=== PATIENT | male | born 1970 | race Caucasian/White ===

== ENCOUNTER 2018-12-27 06:15 | Day surgery (SDC) | payer BC, SELFPAY ==
[2018-12-27 06:20] VITALS: BP 133/80; PULSE 75; RESP 18; TEMP 36.5; O2SAT 95
[2018-12-27] MEDS: Lactated Ringers 1,000 ML 80 ML IV (06:47)
--- NOTE | 2018-12-27 07:49 | BOWEL_PTH ---
PATIENT: Mathieu Lemons LOC: [facility] U#:[id number] AGE/SX: 48/M ROOM: RE12/27/[address]: Allyssa Martinez : 1970 BED: DIS: 12/27/2018 SPEC #: [id number] RECD: 12/27/18 12:39 STATUS: HEATHER REQ #: [id number] KYLAH: 12/27/18 07:[address]: Allyssa Martinez DEPT: Surgical Specimen RECD BY: Annalisa Parikh ENTERED: 12/27/18 12:39 SP TYPE: Bowel OTHR DR: Salazar Reid DO Tissues: 1 - BIOPSY BOWEL Procedures: GROSS AND MICRO LEVEL 4 Comments: [id number]
--- NOTE | 2018-12-27 08:07 | COLE_ITS ---
Date of service: 12/27/18 Time of Service: 08:03 Colonoscopy Report Date of procedure: 12/27/18 Pre-op diagnosis general: crc screen Post-op diagnosis procedure note: other Procedure: polyp 40cm Anesthesia proc note operative: GETA Estimated blood loss (mL): 2 Pathology: other Complications: None Disposition: same day Prep: Miralax Retraction Time: 10 mins Procedure Description: After informed consent was obtained the patient was taken to the procedure room and placed in a left decubitous position. Monitors were applied and a time out was done. The patients name, date of , procedure, al lergies to medications and metal in their body was reviewed. The patient was then sedated. Once sedated and comfortable a rectal exam was done. External exam was normal. Internal exam revealed a normal sphincter tone and no palpable masses. The prostate not palbable The scope was then introduced and retrofelexed. no internal hemorrhoids were identified. The scope was then advanced to the cecum without difficulty. The TI and appendiceal orifice were identified. The prep was good. The scope was then slowly retracted over 10 minutes back into the rectum. Polyps were removed at 40cm in descending colon. Polyp was removed using a cold biting forcep; all specimen was retrieved adn no bleeding noted. There were no AVM's, diverticula and the muscosal and vasculature appeared nl The scope was removed and the patient was woken up and taken back to Same day surgery in stable condition. The patient tolerated the procedure well and there were no immediate complications. Follow up: The patient should follow up in 5-10, path pd, years unless they develop changes in bowel habits or other new gastrointestinal complaints.
--- NOTE | 2018-12-27 08:10 | W.PM.DSUDISC ---
Discharge Plan Disposition Patient Disposition: HOME Condition: Good Discharge Details Attending Provider: Allyssa Martinez Primary Care Provider: Salazar Reid Home Meds and New Rx's Prescriptions: Continued ranitidine HCl 150 mg capsule 150 mg PO BID PRN (Reason: gastric reflux) Qty: 60 RF: 3 indomethacin 50 mg capsule 50 mg PO TID PRN (Reason: gout) Qty: 30 RF: 1 allopurinol 100 MG tablet 200 mg PO DAILY Qty: 180 RF: 3 Discontinued polyethylene glycol 3350 17 gram/dose powder 238 g PO ONCE Qty: 238 RF: 0 bisacodyl [Dulcolax (bisacodyl)] 5 mg tablet,delayed release (DR/EC) 5 mg PO ONCE Qty: 4 RF: 0 Discharge Instructions Additional Instructions: Findings: sm polyp otherwise michaela -no ASA/NSAID's x 10 days Follow up: path pd. will send letter w/ results and when to repeat scope Please call if you develop: fevers >101.5 Nausea or Vomiting Abdominal pain that is not transient DAY SURGERY UNIT POST COLONOSCOPY INSTRUCTIONS 1. Because there will be medication in your system for the next 24 hours, you may feel a little sleepy. Your coordination will be affected. Therefore: a. Do not drive or operate dangerous equipment for 24 hours. b. Do not drink alcohol beverages for 24 hours (not even beer). c. Plan to go home and rest for the day. 2. Generally there are no restrictions on your activity after a day or so has gone by, but you may feel a bit fatigued for a few days. 3 After you arrive home you may have a light meal and return to a normal diet as you can tolerate it without feeling sick to your stomach. 4. After surgery, you may feel pain or discomfort. This should be only transient, but if it persists please contact your doctor. 5. If there are any questions regarding the findings of your procedure, please feel free to contact your doctor. 6. If you are unable to contact your doctor with a problem, contact the hospital at [phone]. 7. Continue all your regular medications unless directed otherwise. I understand the above instructions and have no questions. Signature of Patient or Responsible Adult Escort Date/Time Name of Responsible Adult Escort Signature of Nurse Date/Time Activity:: nl liting or strenuous acituvty x24 hrs Diet:: sm light meals today DS: Diagnosis Discharge Diagnosis (1) Colon polyp: Status: Acute
[2018-12-27 08:35] VITALS: BP 115/75; PULSE 72; RESP 18; TEMP 36; O2SAT 95
== END 2018-12-27 09:05 | disposition home or self-care (01) ==
PROVIDERS: PCP Emergency Medicine; Visit Provider Surgery
PROC: 0DJD8ZZ Inspection of Lower Intestinal Tract, Via Natural or Artificial Opening Endoscopic (ICD-10-PCS; CPT 45378; principal; 2018-12-27 07:30)
DX: Z12.11 Encounter for screening for malignant neoplasm of colon (principal); D12.4 Benign neoplasm of descending colon; K21.9 Gastro-esophageal reflux disease without esophagitis
CPT/HCPCS: 45380; 88305

== ENCOUNTER 2019-01-21 07:58 | Outpatient (CLI) | payer BC, SELFPAY ==
[2019-01-21 13:29] LABS: Cholesterol 224 mg/dL (50-200); HDL Cholesterol 41 mg/dL (40-60); LDL CHOLESTEROL 150 mg/dL (<100); Triglyceride 121 mg/dL (30-150)
[2019-01-21 13:41] LABS: Uric Acid 7.2 mg/dL (3.5-7.2)
== END 2019-01-21 08:18 ==
PROVIDERS: PCP Emergency Medicine; Visit Provider Emergency Medicine
DX: M10.9 Gout, unspecified (principal); Z00.00 Encounter for general adult medical examination without abnormal findings; Z13.220 Encounter for screening for lipoid disorders
CPT/HCPCS: 36415; 80061; 83721; 84550

== ENCOUNTER 2020-02-10 01:48 | Outpatient (CLI) | payer BC, SELFPAY ==
[2020-02-10 16:01] LABS: Anion Gap 10.3 mmol/L (3-11); BUN 11 mg/dL (7-18); CO2 25.7 mmol/L (21.0-32.0); CREATININE 1.17 mg/dL (0.70-1.30); Calcium 9.3 mg/dL (8.5-10.1); Chloride 102 mmol/L (98-107); Glucose 100 mg/dL (74-106); Potassium 4.1 mmol/L (3.5-5.1); Sodium 138 mmol/L (136-145); Uric Acid 5.9 mg/dL (3.5-7.2)
[2020-02-10 16:40] LABS: Calculated LDL 144 mg/dL (<100); Cholesterol 217 mg/dL (<200); HDL Cholesterol 35 mg/dL (40-60); Triglyceride 190 mg/dL (<150)
[2020-02-11 09:45] LABS: PSA, Screening 0.6 ng/mL (0.0-3.5)
== END 2020-02-10 02:08 ==
PROVIDERS: PCP Emergency Medicine; Visit Provider Emergency Medicine
DX: E78.5 Hyperlipidemia, unspecified (principal); I10 Essential (primary) hypertension; M10.9 Gout, unspecified; Z12.5 Encounter for screening for malignant neoplasm of prostate
CPT/HCPCS: 36415; 80048; 80061; 84153; 84550

== ENCOUNTER 2020-09-22 16:28 | Outpatient (REF) | payer BC, SELFPAY ==
[2020-09-22 22:12] LABS: Calculated LDL 83 mg/dL (<100); Cholesterol 157 mg/dL (<200); HDL Cholesterol 37 mg/dL (40-60); Triglyceride 187 mg/dL (<150)
[2020-09-22 22:21] LABS: Uric Acid 4.7 mg/dL (3.5-7.2)
[2020-09-22 22:24] LABS: Hemoglobin A1C 6.2 % (<5.7)
== END 2020-09-22 16:48 ==
LOC: LBN 16:28
PROVIDERS: PCP Emergency Medicine; Visit Provider Emergency Medicine
DX: E78.5 Hyperlipidemia, unspecified (principal); M10.9 Gout, unspecified; E66.9 Obesity, unspecified
CPT/HCPCS: 80061; 83036; 84550

== ENCOUNTER 2021-10-14 03:55 | Outpatient (CLI) | payer BC, SELFPAY ==
[2021-10-14 10:02] LABS: ALT 60 U/L (16-63); Anion Gap 8.5 mmol/L (3-11); BUN 14 mg/dL (7-18); CO2 27.5 mmol/L (21.0-32.0); CREATININE 1.1 mg/dL (0.70-1.30); Calcium 9.3 mg/dL (8.5-10.1); Chloride 102 mmol/L (98-107); Glucose 116 mg/dL (74-106); Potassium 4.2 mmol/L (3.5-5.1); Sodium 138 mmol/L (136-145); Uric Acid 4.6 mg/dL (3.5-7.2)
[2021-10-14 10:07] LABS: Hemoglobin A1C 6.1 % (<5.7)
[2021-10-14 12:03] LABS: Calculated LDL 103 mg/dL (<100); Cholesterol 167 mg/dL (<200); HDL Cholesterol 45 mg/dL (40-60); Triglyceride 99 mg/dL (<150)
[2021-10-14 18:02] LABS: PSA, Screening 0.9 ng/mL (0.0-3.5)
[2021-10-17 10:59] LABS: Hepatitis C Ab w Rflx HCV PCR Negative (Negative)
[2021-10-17 12:19] LABS: HIV-1/2 Ag & Ab Screen Negative (Negative)
== END 2021-10-14 03:56 | disposition home or self-care (01) ==
LOC: LBO 03:55
PROVIDERS: PCP Family Medicine; Visit Provider Family Medicine
DX: E78.5 Hyperlipidemia, unspecified (principal); M10.9 Gout, unspecified; R73.9 Hyperglycemia, unspecified; Z11.59 Encounter for screening for other viral diseases; Z12.5 Encounter for screening for malignant neoplasm of prostate; Z11.4 Encounter for screening for human immunodeficiency virus [HIV]
CPT/HCPCS: 36415; 80048; 80061; 84153; 86803; 87389; 83036; 84460; 84550

== ENCOUNTER 2022-04-07 14:39 | Outpatient (REF) | payer BC, SELFPAY | END 2022-04-07 14:40 | disposition home or self-care (01) | LOC: LBN 14:39 | PROVIDERS: Visit Provider Physician Assistant | DX: J02.9 Acute pharyngitis, unspecified (principal) | CPT/HCPCS: 87070 ==

== ENCOUNTER 2022-11-08 02:35 | Outpatient (CLI) | payer BC, SELFPAY ==
[2022-11-08 08:12] LABS: Hemoglobin A1C 6.3 % (<5.7)
[2022-11-08 09:02] LABS: ALT 50 U/L (16-63); BUN 13 mg/dL (7-18); CREATININE 1.1 mg/dL (0.70-1.30); Calcium 9.2 mg/dL (8.5-10.1); Calculated LDL 87 mg/dL (<100); Chloride 104 mmol/L (98-107); Cholesterol 143 mg/dL (<200); Estimated GFR 79.77 (mL/min/1.73m2); Glucose 134 mg/dL (74-106); HDL Cholesterol 42 mg/dL (40-60); Potassium 3.9 mmol/L (3.5-5.1); Sodium 141 mmol/L (136-145); Triglyceride 74 mg/dL (<150)
[2022-11-08 09:21] LABS: Uric Acid 4.9 mg/dL (3.5-7.2)
== END 2022-11-08 02:36 | disposition home or self-care (01) ==
PROVIDERS: PCP Nurse Practitioner Family; Visit Provider Nurse Practitioner Family
DX: E78.5 Hyperlipidemia, unspecified (principal); I10 Essential (primary) hypertension; M10.9 Gout, unspecified; R73.09 Other abnormal glucose
CPT/HCPCS: 36415; 80048; 80061; 83036; 84460; 84550

== ENCOUNTER 2022-12-19 16:33 | Outpatient (REF) | payer BC, SELFPAY ==
[2022-12-20 12:05] LABS: HSV 1 DNA Result Negative (Negative); HSV 2 DNA Result Negative (Negative)
== END 2022-12-19 16:34 | disposition home or self-care (01) ==
LOC: LBN 16:33
PROVIDERS: PCP Nurse Practitioner Family; Visit Provider Nurse Practitioner Family
DX: R21 Rash and other nonspecific skin eruption (principal); N48.89 Other specified disorders of penis
CPT/HCPCS: 87529; 87070; 87205

== ENCOUNTER 2023-09-02 00:43 | Observation (INO) | payer BC, SELFPAY ==
[2023-09-02] VITALS (22 sets, daily range): BP systolic 102–170; BP diastolic 62–109; PULSE 74–111; RESP 16–20; TEMP 36.6–39.4; O2SAT 90–98
--- NOTE | 2023-09-02 00:45 | RT.EKG_ITS ---
APPROVED REPORT Exam: Resting ECG Reason for Exam: chest pain Patient Location: E HR:82 bpm ECG Measurements Heart Rate 82 AXIS [place] 172 P 9 QRSd 91 QRS 36 QT 566 T 9 QTc 663 Conclusion Sinus rhythm...normal P axis, V-rate 60- 99 limited interp 2/t artifact no ST segment or T wave abnormalities to suggest occluisve [place]
--- NOTE | 2023-09-02 01:07 | DI.CT_ITS ---
Exam(s) CT THORAX ABDOMEN CTA EXAM: CT THORAX ABDOMEN CTA CLINICAL HISTORY: eval aortic dissection. TECHNIQUE: Imaging Protocol: Axial CT angiography was performed with multi-slice acquisition and m ulti-planar and/or 3D reconstructions. CONTRAST MATERIAL: Intravenous: Omnipaque 350 contrast volume:84 mL Oral: No COMPARISON: There are no priors for comparison. FINDINGS: There is patient motion artifact. CHEST: Tracheobronchial tree: Patent where visualized. Pulmonary parenchyma: No consolidation or dominant measurable mass. No architectural distortion. Pulmonary Arteries: The pulmonary arteries were not adequately opacified as the bolus was timed for o ptimal aortic enhancement. Mediastinum and Kavitha: No dominant adenopathy or fluid collection. The esophagus is unremarkable. Visualized thyroid: Unremarkable. Pleura: No effusion or pneumothorax. Heart: The heart is not dilated. Coronary artery calcification and/or stents are present. No pericar dial effusion. Aorta: Thoracic aorta non-dilated. No evidence of dissection. Soft Tissues: Unremarkable. Bones: Within normal limits for the patient's age. ABDOMEN AND PELVIS: Abdomen: Celiac axis/mesenteric arteries: No evidence of occlusion or significant stenosis. Renal Arteries: No evidence of occlusion or significant stenosis. There is a single renal artery per fusing each kidney. Aorta: No evidence of occlusion or significant stenosis. No aneurysm or dissection. Iliac Arteries: No evidence of occlusion or significant stenosis. ABDOMEN: Liver: Normal density. No measurable mass. Gallbladder and Biliary Tract: Gallstones are present. No significant biliary ductal dilatation. Pancreas: Normal density, no abnormal calcifications or inflammatory process. Spleen: Normal. Adrenals: No masses seen. Kidneys: Normal size, contour and axis. No radiodense stones or obstructive uropathy. No masses seen. Bowel: No obstruction or bowel wall thickening. Appendix is unremarkable. Peritoneal Cavity: No ascites, collection or mesenteric inflammatory response. No free air. Lymph Nodes: Within normal limits. Bones: Within normal limits for the patient's age. Soft Tissues: Unremarkable. IMPRESSION: 1. No evidence of thoracic or abdominal aortic dissection. 2. Cholelithiasis. No biliary ductal dilatation. There is concern for gallbladder pathology, ultras ound may be obtained. 3. No acute pulmonary process. RADIATION DOSE DELIVERED: 989.03mGy.cm Total DLP DATA REPOSITORY: All CT scans at this facility are submitted to the National Radiology Data Registry (NRDR) Dose Index Registry (DIR) with the [employer] (ACR). RADIATION OPTIMIZATION: All CT scans at this facility use at least one of these dose optimization te chniques: automated exposure control; mA and/or kV adjustment per patient size (includes targeted exa ms where dose is matched to clinical indication); or iterative reconstruction.
[2023-09-02] MEDS: Aspirin 81 MG CHEW 324 MG CH (01:13)
--- NOTE | 2023-09-02 01:15 | RT.EKG_ITS ---
APPROVED REPORT Exam: Resting ECG Reason for Exam: chest pain Patient Location: E HR:72 bpm ECG Measurements Heart Rate 72 AXIS [place] 148 P 32 QRSd 89 QRS 38 QT 377 T 6 QTc 414 Conclusion Sinus rhythm...normal P axis, V-rate 60- [address] segment or T wave abnormalities to suggest occluisve [place]
[2023-09-02 01:16] LABS: Abs Immature Grans 0.03 10^3/uL (0.0-0.06); Absolute Basophil Count 0.07 10^3/uL (0.0-0.2); Absolute Eosinophil Count 0.33 10^3/uL (0.0-0.7); Absolute Lymphocyte Count 3.08 10^3/uL (1.2-3.4); Absolute Monocyte Count 1.47 10^3/uL (0.1-0.8); Absolute Neutrophil Count 7.28 10^3/uL (1.2-6.7); Basophils % 0.6; Eosinophils % 2.7; HCT 42.2 % (40.0-50.0); HGB 14.5 g/dL (13.5-17.5); Immature Grans % 0.2; Lymphocytes % 25.1; MCH 29.7 pg (27.0-33.0); MCHC 34.4 % (32.0-36.0); MCV 87 fL (80-95); MPV 8.8 fL (8.0-11.0); Neutrophils % 59.4; Platelet Count 301 10^3/uL (130-400); RBC 4.88 10^6/uL (4.36-5.78); RDW 13.2 % (11.8-14.1); RDW-SD 41.2 fL; WBC 12.26 10^3/uL (4.4-10.8)
[2023-09-02 01:39] LABS: ALT 40 U/L (16-63); AST 18 U/L (15-37); Albumin 3.9 g/dL (3.4-5.0); Alkaline Phosphatase 93 U/L (46-116); Anion Gap 8.9 mmol/L (3-11); BUN 17 mg/dL (7-18); Bilirubin, Total 0.6 mg/dL (0.2-1.0); CO2 29.1 mmol/L (21.0-32.0); CREATININE 1.2 mg/dL (0.70-1.30); Calcium 9.2 mg/dL (8.5-10.1); Chloride 99 mmol/L (98-107); Estimated GFR 71.42 (mL/min/1.73m2); Glucose 166 mg/dL (74-106); Magnesium 1.8 mg/dL (1.8-2.4); NT-proBNP 18 pg/mL (<300); Potassium 3.3 mmol/L (3.5-5.1); Sodium 137 mmol/L (136-145); Total Protein 7.4 g/dL (6.4-8.2); Troponin I < 50 ng/L (<or=60)
--- NOTE | 2023-09-02 01:55 | W.ED.GENAD ---
HPI General Stated Complaint: Chest Pain Mode of arrival: ambulatory. HARI: 3 Date/Time Provider Initiated Documentation: 09/02/23 00:58. Limitations to Documentation: no limitations. Information obtained by: patient. HPI Narrative: 53yo M with no prior cardiac hx presenting with 2 weeks of intermittent substernal/lower chest pain radiating into his back. Symptoms started two weeks ago, often noted overnight, and seemed to improve within 10-15 minutes after onset after he had a bowel movement. Yesterday lasted around 2 hours. Today has been present for 2 hours and is starting to wane but still present, 4/10 in severity. No associated shortness of breath, pleuritic pain, or presyncope. No nausea, vomiting, or diarrhea. No LE edema. No orthopnea or dyspnea. No personal cardiac hx, does think his mother at age 62 from a heart attack though is not certain. He is otherwise in his usual state of health with no fevers, chills, rash, cough, abdominal pain, or other concerns. Related Data Home Medications Medication Instructions Recorded Confirmed psyllium husk 3.4 gram/5.4 gram 1 tbsp PO DAILY 09/22/20 09/02/23 oral powder (Metamucil) allopurinol 300 mg tablet See Rx Instructions .Route 02/23/23 09/02/23 .COMPLEX #90 tabs famotidine 20 mg tablet See Rx Instructions .Route 02/23/23 09/02/23 .COMPLEX #90 tabs rosuvastatin 10 mg tablet (Crestor) 10 mg PO DAILY #90 tabs 02/23/23 09/02/23 Previous Rx's Medication Instructions Recorded allopurinol 300 mg tablet See Rx Instructions .Route 02/23/23 .COMPLEX #90 tabs famotidine 20 mg tablet See Rx Instructions .Route 02/23/23 .COMPLEX #90 tabs rosuvastatin 10 mg tablet (Crestor) 10 mg PO DAILY #90 tabs 02/23/23 Allergies Allergy/AdvReac Type Severity Reaction Status Date / Time No Known Allergies Allergy Verified 09/02/23 00:52 Review of Systems Narrative: see HPI PFSH All Active Problems (Updated 12/19/22 @ 11:11 by Alexx Owen NP) Rash of penis (Acute) Rhinosinusitis (Acute) Hypertension (Chronic) Prediabetes (Acute) Hyperlipidemia (Acute) Colon polyp (Acute) 12/27/[address] Allyssa Martinez, [facility] - tubular adenoma, repeat in five years. Acquired kyphosis (Chronic) thoracic kyphosis Gout (Chronic 11/24/15) Obesity (Chronic) Medical History GERD (gastroesophageal reflux disease) Not taking any medication at this time Hyperglycemia 2020, [id number]%. [id number]-[id number]-1.1%, FBS-116 Family History Mother , [place] at age 62. Heart disease Myocardial infarction Father , OLD AGE at age 80. No problems noted. Sister No problems noted. Sister No problems noted. Brother No problems noted. Brother Hyperlipidemia Testicular cancer Maternal Grandfather , AGE 55 Heart disease Paternal Grandfather , AGE 83 Alcohol abuse Liver cancer Maternal Grandmother , AGE 94 No problems noted. Paternal Grandmother , AGE 79 Diabetes Son No problems noted. Son Depression Social History Smoking/Tobacco Use Status: Never Second Hand Exposure: Yes Smoking risk assessment performed?: Yes Alcohol Intake: current Alcohol Intake frequency: a few times a month Alcohol type: beer and hard liquor Drug use: Never Substance use type: does not use Counseling given: No Caregiver/Support person: No Household members: spouse, children and other Details: son's girlfriend Housing: house Communication Needs: None Do you need help understanding health information?: Never Pets and animals: No Sexually active: Yes Do you think of yourself as: straight/heterosexual Current gender identity: male What is your relationship status?: How often do you talk on the phone with friends or family?: never How often do you get together with friends or relatives?: once per week How often do you attend taoism or christianity services?: 1-3 times per year Do you belong to any clubs or organized social groups?: yes Panel score (0-1 are the most socially isolated patients): 2 What type of physical activity do you participate in: bicycling Duration: 15-30 minutes/day Frequency: 1-2 times per week Nancy/Zoroastrian: No preference Special nancy needs: No Seatbelt use: always Helmet use: Yes Helmet use: always Drive intox or ride w/intox construction driver: No Do you feel safe at home: Yes Do you feel safe in your relationship?: Yes Exam Narrative Exam Narrative: General: Alert, well appearing, well nourished, in no acute distress. Head: Normocephalic, atraumatic Neck: Trachea midline, ?Neck supple. ENT: ?MMM.? Cardiac: ?RRR, no murmurs appreciated Resp: No respiratory distress. CTAB. Abd: ?Soft, non-distended, nontender : ?No suprapubic tenderness. Extremities: ?No deformities.? No peripheral edema. Neurologic: GCS 15. ? Moves all extremities freely against gravity Course Vital Signs Vital signs: Vital Signs Temperature 37.1 C 09/02/23 00:46 Pulse 78 09/02/23 00:46 Respiratory Rate 18 09/02/23 00:46 Blood Pressure 166/109 H 09/02/23 00:46 Pulse Oximetry 97 09/02/23 00:46 Temperature 37.1 C 09/02/23 00:46 Temperature Source Skin 09/02/23 00:46 Pulse 78 09/02/23 00:46 Respiratory Rate 18 09/02/23 00:50 Respiratory Effort Normal 09/02/23 00:50 Respiratory Depth Normal 09/02/23 00:50 Respiratory Pattern Normal 09/02/23 00:50 Blood Pressure 166/109 H 09/02/23 00:46 Blood Pressure Position Sitting 09/02/23 00:46 Pulse Oximetry 97 09/02/23 00:46 Oxygen Delivery Method Room Air 09/02/23 00:46 Oxygen Flow Rate 0 09/02/23 00:46 Lab/Test Results Lab/Test Results: Laboratory Tests Range/Units 09/02/23 00:57 WBC (4.4-10.8) 10^3/uL 12.26 H RBC (4.36-5.78) 10^6/uL 4.88 Hgb (13.5-17.5) g/dL 14.5 Hct (40.0-50.0) % 42.2 MCV (80-95) fL 87 MCH (27.0-33.0) pg 29.7 MCHC (32.0-36.0) % 34.4 RDW (11.8-14.1) % 13.2 Plt Count (130-400) 10^3/uL 301 MPV (8.0-11.0) fL 8.8 Immature Gran % 0.2 Neutrophils % 59.4 Lymphocytes % 25.1 Monocytes % 12.0 Eosinophils % 2.7 Basophils % 0.6 Nucleated RBC % (0.0-0.3) % 0.0 Absolute Neutrophils (1.2-6.7) 10^3/uL 7.28 H Absolute Lymphocytes (1.2-3.4) 10^3/uL 3.08 Absolute Monocytes (0.1-0.8) 10^3/uL 1.47 H Absolute Eosinophils (0.0-0.7) 10^3/uL 0.33 Absolute Basophils (0.0-0.2) 10^3/uL 0.07 Sodium (136-145) mmol/L 137 Potassium (3.5-5.1) mmol/L 3.3 L Chloride (98-107) mmol/L 99 Carbon Dioxide (21.0-32.0) mmol/L 29.1 Anion Gap (3-11) mmol/L 8.9 BUN (7-18) mg/dL 17 Creatinine (0.70-1.30) mg/dL 1.2 Est GFR (CKD-EPI 2020) (mL/min/1.73m2) 71.42 Glucose (74-106) mg/dL 166 H Calcium (8.5-10.1) mg/dL 9.2 Magnesium (1.8-2.4) mg/dL 1.8 Total Bilirubin (0.2-1.0) mg/dL 0.6 AST (15-37) U/L 18 ALT (16-63) U/L 40 Alkaline Phosphatase (46-116) U/L 93 Troponin I (<or=60) ng/L < 50 NT-Pro-B Natriuret Pep (<300) pg/mL 18 Total Protein (6.4-8.2) g/dL 7.4 Albumin (3.4-5.0) g/dL 3.9 Medical Decision Making 53yo M with no prior cardiac hx presenting with 2 weeks of intermittent substernal/lower chest pain radiating into his back. Today has been present for 2 hours and is starting to wane but still present, 4/10 in severity. No associated symptoms. Hypertensive on arrival SBP 160's, vital signs otherwise reassuring. No shortness of breath, hypoxia, tachycardia, or pleuritic pain to suggest pulmonary embolism; would not workup further with dimer or CT. Physical exam reassuring with no abdominal tenderness, no RUQ tenderness. Lower suspicion for gallbladder pathology or pancreatitis. Given 325 of aspirin. EKG NSR, no ST segment or T wave abnormalities to suggest occlusive [place]. Labs reviewed as below, CBC with mild leukocytosis to 12, CMP with mild hypokalemia to 3.3 (oral replacement ordered), otherwise no significant abnormalities. Mg normal. Initial troponin and BNP normal. Lipase normal. CT for dissection independently reviewed; no clear dissection flap on my view, agree with radiology read below. Of note, patient does have gallstones seen on CT. On reassessment patient reports feeling nauseated, pain persists. Differential remains broad including ACS, gastritis, reflux, biliary colic/cholecystitis. Attempted symptom control with zofran, tylenol, viscous lidocaine, mylanta, bentyl. Nausea improved, pain minimally improved with regimen. Given 4mg IV morphine with good effect. Repeat CMP reassuring with no significant increase in bilirubin or LFTs. Early cholecystitis possible, would prefer to evaluate with ultrasound however unavailable over the weekend. Repeat troponin negative. HEART score 3 (A1 RF2); low risk. Would not further pursue ACS workup at this time. On reassessment pain has returned. On repeat exam does now have RUQ tenderness on exam, Beckman's remains negative. Overall presentation concerning for early cholecystitis particularly given persistence of symptoms, evolving RUQ pain, leukocystosis. Warrants US to further evaluate; unable to get US to come in here. Will attempt to transfer patient to facility with [place] availability[place] [facility] [facility] no capacity. [facility] no capacity. [facility] unable to get US. [place] unable to get US. [facility] unable to get US. [facility] unable to get US. Signed out to oncoming physician, will need to continue to find appropriate accepting facility. Imaging Data Radiologic Study: Imaging: CT Scan Radiologist's impression: IMPRESSION: 1. No evidence of aortic dissection. 2. Cholelithiasis and possible gallbladder wall thickening. Correlate with ultrasound if indicated. Lab Data Lab results reviewed: Yes I reviewed the patient's lab results. Labs: Laboratory Tests Range/Units 09/02/23 09/02/23 00:57 04:07 WBC (4.4-10.8) 10^3/uL 12.26 H RBC (4.36-5.78) 10^6/uL 4.88 Hgb (13.5-17.5) g/dL 14.5 Hct (40.0-50.0) % 42.2 MCV (80-95) fL 87 MCH (27.0-33.0) pg 29.7 MCHC (32.0-36.0) % 34.4 RDW (11.8-14.1) % 13.2 Plt Count (130-400) 10^3/uL 301 MPV (8.0-11.0) fL 8.8 Immature Gran % 0.2 Neutrophils % 59.4 Lymphocytes % 25.1 Monocytes % 12.0 Eosinophils % 2.7 Basophils % 0.6 Nucleated RBC % (0.0-0.3) % 0.0 Absolute Neutrophils (1.2-6.7) 10^3/uL 7.28 H Absolute Lymphocytes (1.2-3.4) 10^3/uL 3.08 Absolute Monocytes (0.1-0.8) 10^3/uL 1.47 H Absolute Eosinophils (0.0-0.7) 10^3/uL 0.33 Absolute Basophils (0.0-0.2) 10^3/uL 0.07 Sodium (136-145) mmol/L 137 134 L Potassium (3.5-5.1) mmol/L 3.3 L 3.7 Chloride (98-107) mmol/L 99 99 Carbon Dioxide (21.0-32.0) mmol/L 29.1 27.4 Anion Gap (3-11) mmol/L 8.9 7.6 BUN (7-18) mg/dL 17 16 Creatinine (0.70-1.30) mg/dL 1.2 1.2 Est GFR (CKD-EPI 2020) (mL/min/1.73m2) 71.42 71.42 Glucose (74-106) mg/dL 166 H 193 H Calcium (8.5-10.1) mg/dL 9.2 9.1 Magnesium (1.8-2.4) mg/dL 1.8 Total Bilirubin (0.2-1.0) mg/dL 0.6 0.5 AST (15-37) U/L 18 18 ALT (16-63) U/L 40 39 Alkaline Phosphatase (46-116) U/L 93 89 Troponin I (<or=60) ng/L < 50 < 50 NT-Pro-B Natriuret Pep (<300) pg/mL 18 Total Protein (6.4-8.2) g/dL 7.4 7.3 Albumin (3.4-5.0) g/dL 3.9 3.8 Lipase (16-77) U/L 31 Quality:[facility] Health Related Social Needs: No Data to Display Sign Out Sign Out Data: Sign Out Comment: 53yo M presenting with lower chest pain radiating to back. RUQ tenderness on exam. CT/EKG/labs reassuring, clinically presents as early cholecystitis. Needs US. Attempting to find accepting facility early this am without success. IV morphine for pain, zofran for nausea. Needs followup on accepting facility. Last updated by Amie Velazquez MD at 09/02/23 06:22 Discharge Plan Discharge Details Chief Complaint: Chest Pain Primary Care Provider: Alexx oJe ED Provider: Amie Velazquez Home Meds and New Rx's Prescriptions: No Action Metamucil 3.4 gram/5.4 gram powder 1 tbsp PO DAILY Rx Instructions: mix into at least 8 oz of water or juice before administering allopurinol 300 mg tablet See Rx Instructions .ROUTE .COMPLEX Qty: 90 2RF Dose Instruction: TAKE ONE TABLET BY MOUTH EVERY DAY Rx Instructions: TAKE ONE TABLET BY MOUTH EVERY DAY famotidine 20 mg tablet See Rx Instructions .ROUTE .COMPLEX Qty: 90 1RF Dose Instruction: TAKE ONE TABLET BY MOUTH EVERY DAY Rx Instructions: TAKE ONE TABLET BY MOUTH EVERY DAY rosuvastatin [Crestor] 10 mg tablet 10 mg PO DAILY Qty: 90 3RF
[2023-09-02] MEDS: Omnipaque 350 MG/ML 100 ML BTL IJ (02:03)
[2023-09-02] MEDS: Potassium Chloride 20 MEQ TABCR 40 MEQ PO (02:16)
--- NOTE | 2023-09-02 02:27 | DI.VRAD_ITS ---
PROCEDURE INFORMATION: Exam: CTA Chest With Contrast CTA Abdomen With Contrast Exam date and time: 09/02/2023 1:32 AM Age: 53 years old Clinical indication: Other: Eval aortic dissection TECHNIQUE: Imaging protocol: Computed tomographic angiography of the chest with contrast. Exam focused on the arteries. Computed tomographic angiography of the abdomen with contrast. Exam focused on the arteries. 3D rendering (Not supervised by radiologist): MIP and/or 3D reconstructed images were created by the technologist. Contrast material: 350; Contrast volume: 85 ml; Contrast route: INTRAVENOUS (IV); COMPARISON: No relevant prior studies available. FINDINGS: VASCULATURE: Pulmonary arteries: Minimal opacification of the pulmonary arteries. Aorta: Normal aorta without aneurysm or dissection. Celiac trunk and mesenteric arteries: No occlusion or significant stenosis. Renal arteries: No occlusion or significant stenosis. CHEST: Lungs: No airspace consolidation or ground-glass opacities. Pleural spaces: No pleural effusion or pneumothorax. Heart: Unremarkable. No cardiomegaly. No pericardial effusion. ABDOMEN AND PELVIS: Liver: No mass. Gallbladder and bile ducts: Cholelithiasis. Possible gallbladder wall thickening. Pancreas: Unremarkable. No mass. No ductal dilation. Spleen: Unremarkable. No splenomegaly. Adrenal glands: Unremarkable. No mass. Kidneys and ureters: Unremarkable. No solid mass. No hydronephrosis. Stomach and bowel: Unremarkable. No obstruction. No mucosal thickening. Appendix: Normal appendix. Intraperitoneal space: No free fluid or free air. Lymph nodes: Unremarkable. No enlarged lymph nodes. Bones/joints: No acute fracture. Soft tissues: Unremarkable. IMPRESSION: 1. No evidence of aortic dissection. 2. Cholelithiasis and possible gallbladder wall thickening. Correlate with ultrasound if indicated. Dictated and Authenticated by: Trever Fournier MD. Ordering:HUANG Holloway MD
[2023-09-02 02:33] LABS: Lipase 31 U/L (16-77)
[2023-09-02] MEDS: Acetaminophen 500 MG TAB 1000 MG PO ×3 (02:40→21:22)
[2023-09-02] MEDS: Calcium Carbonate *TUMS* 500 MG CHEW PO (02:41)
[2023-09-02] MEDS: Lidocaine 2% Viscous 15 ML CUP PO (02:41)
[2023-09-02] MEDS: Ondansetron 4 MG/2 ML VIAL IM (02:42)
[2023-09-02] MEDS: Sucralfate 1 GM TAB PO (02:42)
[2023-09-02] MEDS: Mylanta Suspension 30 ML CUP (02:42)
--- NOTE | 2023-09-02 02:42 | NUR.NOTE ---
Nursing Note:pt promptly vomitted after GI cocktail made aware
[2023-09-02] MEDS: Dicyclomine 20 MG TAB PO (03:33)
[2023-09-02 04:38] LABS: ALT 39 U/L (16-63); AST 18 U/L (15-37); Albumin 3.8 g/dL (3.4-5.0); Alkaline Phosphatase 89 U/L (46-116); Anion Gap 7.6 mmol/L (3-11); BUN 16 mg/dL (7-18); Bilirubin, Total 0.5 mg/dL (0.2-1.0); CO2 27.4 mmol/L (21.0-32.0); CREATININE 1.2 mg/dL (0.70-1.30); Calcium 9.1 mg/dL (8.5-10.1); Chloride 99 mmol/L (98-107); Estimated GFR 71.42 (mL/min/1.73m2); Glucose 193 mg/dL (74-106); Potassium 3.7 mmol/L (3.5-5.1); Sodium 134 mmol/L (136-145); Total Protein 7.3 g/dL (6.4-8.2)
[2023-09-02 04:54] LABS: Troponin I < 50 ng/L (<or=60)
--- NOTE | 2023-09-02 07:29 | ED.PROG_ITS ---
Date of service: 09/02/23 Time of Service: 07:29 Medical Decision Making 7:29 AM I have received signout. I have reviewed the patient's labs and radiographs. I have examined the patient. He is reporting chills but does not feel warm to the touch. His abdomen is soft, mild RUQ tenderness. His pain is about a 5 out of 10 in severity. He is also reporting nausea and stated he just vomited. I will write for Zofran, morphine and a repeat temp as well as IV fluids to keep him n.p.o. and I will consult Dr. Ann from general surgery. 7:48 AM I have spoken with Dr. Ann who has agreed to admit the patient. I will update the patient and his family. 8:[address] Ann is with the patient. The patient will be admitting the patient. the patient voiced agreement and understanding with plan. Lab Data Lab results reviewed: Yes I reviewed the patient's lab results. Quality:[facility] Health Related Social Needs: No Data to Display Sign Out Sign Out Data: Sign Out Comment: 53yo M presenting with lower chest pain radiating to back. RUQ tenderness on exam. CT/EKG/labs reassuring, clinically presents as early cholecystitis. Needs US. Attempting to find accepting facility early this am without success. IV morphine for pain, zofran for nausea. Needs followup on accepting facility. Last updated by Amie Velazquez MD at 09/02/23 06:22 Discharge Plan Disposition Patient Disposition: Admit to [facility] Discharge Details Clinical Impression: Gallstones, Biliary colic Admit Date/Time: 09/02/23 08:41 Admit Provider: Braydon Ann Attending Provider: Braydon Ann Primary Care Provider: Alexx Joe ED Provider: Winter Teresa Discharge Data Discharge Date/Time-TO BE ENTERED AT DEPARTURE: 09/02/23 10:02
[2023-09-02] MEDS: Normal Saline 1,000 ML 200 ML IV (07:40)
[2023-09-02] MEDS: Ondansetron 4 MG/2 ML VIAL IVP (07:44)
[2023-09-02] MEDS: Ketorolac 15 MG/ML VIAL IVP (07:48)
--- NOTE | 2023-09-02 08:10 | W.PM.HP.N ---
Date of service: 09/02/23 Time of Service: 08:10 Assessment and Plan Assessment and plan (1) Biliary colic: Status: Acute Assessment and plan: He certainly has some gallstones on the CAT scan, and may be some gallbladder distention. The gallbladder wall thickening is very mild. This certainly could be cholecystitis, or at the very least biliary colic. We talked about different treatment options, and for now, we will start him on some antibiotics and limit the diet to see how he does over the next 24 hours. If he continues to have discomfort, then I do think that will probably benefit from cholecystectomy. If his symptoms improve, reassess as an outpatient and refine the plan if needed. History of Present Illness History of Present Illness Chief Complaint: Midepigastric pain Narrative: Robbie is 53 years old, comes to the emergency department after acute onset of mid epigastric abdominal pain that radiated towards his back. He noticed it last night, after eating, and it persisted through the night time. It similar to an episode he had a few weeks ago. At that time, however, it was relieved with moving his bowels. This was associated with a little bit of nausea as well. When he was in the emergency department, he underwent a CT scan of the chest that demonstrated cholelithiasis, and the possibility of some gallbladder wall thickening. Review of Systems Constitutional Constitutional: Reports chills, Denies fever(s) and Denies poor appetite Eyes Eyes: Reports system reviewed and no additional complaints, except as documented ENT Ears, Nose, Mouth, and Throat: Reports system reviewed and no additional complaints, except as documented Cardiovascular Cardiovascular: Reports chest pain (More midepigastric), Denies chest pain with activity and Denies dyspnea Respiratory Respiratory: Denies chest congestion, Denies cough and Denies dyspnea Gastrointestinal Gastrointestinal: Reports abdominal pain, Denies diarrhea, Reports nausea and Denies vomiting Genitourinary Genitourinary: Reports system reviewed and no additional complaints, except as documented Musculoskeletal Musculoskeletal: Reports system reviewed and no additional complaints, except as documented Neurologic Neurologic: Reports system reviewed and no additional complaints, except as documented Endocrine Endocrine: Denies change in body appearance and Reports polydipsia Hematologic/Lymphatic Hematologic/Lymphatic: Denies easy bleeding and Denies easy bruising PFSH All Active Problems Biliary colic (Acute) Gallstones (Acute) Rash of penis (Acute) Rhinosinusitis (Acute) Hypertension (Chronic) Prediabetes (Acute) Hyperlipidemia (Acute) Colon polyp (Acute) 12/27/[address] Allyssa Martinez, [facility] - tubular adenoma, repeat in five years. Acquired kyphosis (Chronic) thoracic kyphosis Gout (Chronic 11/24/15) Obesity (Chronic) Medical History Hyperglycemia 2020, [id number]-5.2%. [id number]-[id number]-1.1%, FBS-116 GERD (gastroesophageal reflux disease) Not taking any medication at this time Family History Mother , [place] at age 62. Heart disease Myocardial infarction Father , OLD AGE at age 80. No problems noted. Sister No problems noted. Sister No problems noted. Brother No problems noted. Brother Hyperlipidemia Testicular cancer Maternal Grandfather , AGE 55 Heart disease Paternal Grandfather , AGE 83 Alcohol abuse Liver cancer Maternal Grandmother , AGE 94 No problems noted. Paternal Grandmother , AGE 79 Diabetes Son No problems noted. Son Depression Social History Smoking/Tobacco Use Status: Never Second Hand Exposure: Yes Smoking risk assessment performed?: Yes Alcohol Intake: current Alcohol Intake frequency: a few times a month Alcohol type: beer and hard liquor Drug use: Never Substance use type: does not use Counseling given: No Caregiver/Support person: No Household members: spouse, children and other Details: son's girlfriend Housing: house Communication Needs: None Do you need help understanding health information?: Never Pets and animals: No Sexually active: Yes Do you think of yourself as: straight/heterosexual Current gender identity: male What is your relationship status?: How often do you talk on the phone with friends or family?: never How often do you get together with friends or relatives?: once per week How often do you attend scientology or sabianist services?: 1-3 times per year Do you belong to any clubs or organized social groups?: yes Panel score (0-1 are the most socially isolated patients): 2 What type of physical activity do you participate in: bicycling Duration: 15-30 minutes/day Frequency: 1-2 times per week Nancy/Uatsdin: No preference Special nancy needs: No Seatbelt use: always Helmet use: Yes Helmet use: always Drive intox or ride w/intox hazardous materials driver: No Do you feel safe at home: Yes Do you feel safe in your relationship?: Yes Meds Allergies and Home Medications Allergies Allergy/AdvReac Type Severity Reaction Status Date / Time No Known Allergies Allergy Verified 09/02/23 00:52 Home Medications Medication Instructions Recorded Confirmed Type psyllium husk 3.4 gram/5.4 gram 1 tbsp PO DAILY 09/22/20 09/02/23 History oral powder (Metamucil) allopurinol 300 mg tablet See Rx Instructions .Route 02/23/23 09/02/23 Rx .COMPLEX #90 tabs famotidine 20 mg tablet See Rx Instructions .Route 02/23/23 09/02/23 Rx .COMPLEX #90 tabs rosuvastatin 10 mg tablet (Crestor) 10 mg PO DAILY #90 tabs 02/23/23 09/02/23 Rx Exam Const General: cooperative and comfortable Nutritional Appearance: overweight Orientation: alert, awake and oriented x3 HENMT Head: normal to inspection Eyes General: appearance normal, both eyes and all related structures Neck Neck: normal visual inspection and full ROM Thyroid: thyroid normal Resp Effort & Inspection: no cough Auscultation: clear to auscultation bilaterally GI Inspection: normal to inspection Palpation: soft, no guarding and tender (Upper abdomen) Percussion: normal to percussion Auscultation: normal bowel sounds Skin General skin exam: no rashes or lesions noted Neuro General: patient alert, patient awake and patient oriented x3 Extrem General: normal to inspection Right lower extremity: no cyanosis and no edema Left lower extremity: no cyanosis and no edema Psych Appearance: grossly normal Results Labs 09/02/23 00:57 09/02/23 04:07 Labs: Laboratory Results - last 24 hr 09/02/23 09/02/23 00:57 04:07 WBC 12.26 H RBC 4.88 Hgb 14.5 Hct 42.2 MCV 87 MCH 29.7 MCHC 34.4 RDW 13.2 Plt Count 301 MPV 8.8 Immature Gran % 0.2 Neutrophils % 59.4 Lymphocytes % 25.1 Monocytes % 12.0 Eosinophils % 2.7 Basophils % 0.6 Nucleated RBC % 0.0 Absolute Neutrophils 7.28 H Absolute Lymphocytes 3.08 Absolute Monocytes 1.47 H Absolute Eosinophils 0.33 Absolute Basophils 0.07 Sodium 137 134 L Potassium 3.3 L 3.7 Chloride 99 99 Carbon Dioxide 29.1 27.4 Anion Gap 8.9 7.6 BUN 17 16 Creatinine 1.2 1.2 Est GFR (CKD-EPI 2020) 71.42 71.42 Glucose 166 H 193 H Calcium 9.2 9.1 Magnesium 1.8 Total Bilirubin 0.6 0.5 AST 18 18 ALT 40 39 Alkaline Phosphatase 93 89 Troponin I < 50 < 50 NT-Pro-B Natriuret Pep 18 Total Protein 7.4 7.3 Albumin 3.9 3.8 Lipase 31 Last Vital Signs Temp 97.9 F 09/02/23 07:31 Pulse 99 H 09/02/23 07:35 Resp 16 09/02/23 01:32 BP 131/66 09/02/23 07:35 Pulse Ox 96 09/02/23 07:35 Time Spent Time spent with Patient: 40-54 minutes Time was spent: preparing to see the patient(eg.review tests), ordering medications,tests, procedures, referring, communicating with other health care advocate, indepentently interpreting results and counseling the patient
--- NOTE | 2023-09-02 09:55 | W.PC.ACHO ---
Registration Status: REG ER Primary Language: Preferred Language: Hungarian ED Information & Data Chief Complaint Chest Pain 09/02/23 01:59 Triage Note No cough, SOB. lower chest 09/02/23 00:46 pain that raidates into the lower back. going since 0 intermittently. reoccurent in the last few weeks. Pt states that bowel movements have resolved this issue but not today. Medical / Surgical History (Last Reviewed 09/02/23 @ 08:32 by Braydon Ann MD) Hyperglycemia GERD (gastroesophageal reflux disease) Most Recent Vital Signs Temperature 37.5 C 09/02/23 08:41 Temperature Source Tympanic 09/02/23 08:41 Pulse 107 H 09/02/23 08:41 Pulse 81 09/02/23 01:32 Respiratory Rate 16 09/02/23 08:41 Respiratory Effort Normal 09/02/23 00:50 Respiratory Depth Normal 09/02/23 00:50 Respiratory Pattern Normal 09/02/23 00:50 Blood Pressure 157/62 H 09/02/23 08:41 Blood Pressure Mean 109 09/02/23 01:31 Blood Pressure Position Sitting 09/02/23 00:46 Pulse Oximetry 96 09/02/23 08:41 Oxygen Delivery Method Room Air 09/02/23 08:41 Oxygen Flow Rate 0 09/02/23 08:41 Pain Level 2 09/02/23 08:41 Allergies No Known Allergies Allergy (Verified 09/02/23 00:52) Precautions Isolation Standard precaution 09/02/23 00:49 Active Medications Generic Name Dose Route Start Last Admin Trade Name Freq PRN Reason Stop Dose Admin Sodium Chloride 1,000 mls @ 200 mls/hr 09/02/23 07:30 09/02/23 07:40 Saline 1000ml Bag IV 09/02/23 12:29 200 mls/hr BOLUS ONE Administration Morphine Sulfate 4 mg 09/02/23 02:35 09/02/23 03:33 Morphine 4 Mg/Ml Vial IVP 4 mg Q1H PRN PRN Administration IV IV Catheter Type [Right Saline Lock Antecubital] IV Catheter Gauge [Right 18 Antecubital] Diagnostics 09/02/23 09/02/23 Range/Units 04:07 00:57 WBC 12.26 H (4.4-10.8) 10^3/uL RBC 4.88 (4.36-5.78) 10^6/uL Hgb 14.5 (13.5-17.5) g/dL Hct 42.2 (40.0-50.0) % MCV 87 (80-95) fL MCH 29.7 (27.0-33.0) pg MCHC 34.4 (32.0-36.0) % RDW 13.2 (11.8-14.1) % Plt Count 301 (130-400) 10^3/uL MPV 8.8 (8.0-11.0) fL Immature Gran % 0.2 Neutrophils % 59.4 Lymphocytes % 25.1 Monocytes % 12.0 Eosinophils % 2.7 Basophils % 0.6 Nucleated RBC % 0.0 (0.0-0.3) % Absolute Neutrophils 7.28 H (1.2-6.7) 10^3/uL Absolute Lymphocytes 3.08 (1.2-3.4) 10^3/uL Absolute Monocytes 1.47 H (0.1-0.8) 10^3/uL Absolute Eosinophils 0.33 (0.0-0.7) 10^3/uL Absolute Basophils 0.07 (0.0-0.2) 10^3/uL Sodium 134 L 137 (136-145) mmol/L Potassium 3.7 3.3 L (3.5-5.1) mmol/L Chloride 99 99 (98-107) mmol/L Carbon Dioxide 27.4 29.1 (21.0-32.0) mmol/L Anion Gap 7.6 8.9 (3-11) mmol/L BUN 16 17 (7-18) mg/dL Creatinine 1.2 1.2 (0.70-1.30) mg/dL Est GFR (CKD-EPI 2020) 71.42 71.42 (mL/min/1.73m2) Glucose 193 H 166 H (74-106) mg/dL Calcium 9.1 9.2 (8.5-10.1) mg/dL Magnesium 1.8 (1.8-2.4) mg/dL Total Bilirubin 0.5 0.6 (0.2-1.0) mg/dL AST 18 18 (15-37) U/L ALT 39 40 (16-63) U/L Alkaline Phosphatase 89 93 (46-116) U/L Troponin I < 50 < 50 (<or=60) ng/L NT-Pro-B Natriuret Pep 18 (<300) pg/mL Total Protein 7.3 7.4 (6.4-8.2) g/dL Albumin 3.8 3.9 (3.4-5.0) g/dL Lipase 31 (16-77) U/L Intake and Output - 24 Hour Total 09/02/23 00:43 thru 09/02/23 00:46 Weight 113.398 kg Falls Risk Assessment History of Falls No History 09/02/23 00:50 Contributing Factors No Factors 09/02/23 00:50 Ambulatory Aids Independent 09/02/23 00:50 Tubes/Lines None 09/02/23 00:50 Gait Evaluation No gait disturbance 09/02/23 00:50 Cognition No cognitive impairment 09/02/23 00:50 Fall Total Score 0 09/02/23 00:50 Level of Risk Standard/Low Risk 09/02/23 00:50 Problems (Last Reviewed 09/02/23 @ 08:32 by Braydon Ann MD) Biliary colic (Acute) Gallstones (Acute) Notes 09/02/23 02:42 Nursing Notes by Alicia Gant Nursing Note:pt promptly vomitted after GI MD stefanie made aware Initialized on 09/02/23 02:42 - END OF NOTE v v v v v v v v v Sending and/or Receiving Nurses: Please use comment section below to note any information pertinent to the patient hand-off not included above. Information / Comments: Report received from: Esperanza Leong RN
[2023-09-02] MEDS: HYDROmorphone 2 MG/ML SYR 1 MG IVP (10:54)
[2023-09-02] MEDS: Enoxaparin 40 MG/0.4 ML SYR SC (10:55)
[2023-09-02] MEDS: Normal Saline Flush 10 ML SYR IVP ×2 (10:57→21:00)
[2023-09-02] MEDS: Ketorolac 30 MG/ML VIAL IVP ×2 (11:08→18:02)
[2023-09-02] MEDS: PIPERACILLIN/TAZO 3.375 GM in Normal Saline 50 ML IVPB ×3 (12:42→23:57)
[2023-09-02] MEDS: Normal Saline 1,000 ML 30 ML IV (12:44)
[2023-09-02] MEDS: Lactated Ringers 500 ML IV (18:44)
[2023-09-02] MEDS: Normal Saline 1,000 ML 75 ML IV (20:01)
[2023-09-03] VITALS (31 sets, daily range): BP systolic 85–142; BP diastolic 55–83; PULSE 81–101; RESP 18–24; TEMP 36.3–38; O2SAT 91–98; BMI 37.5
--- NOTE | 2023-09-03 | DI.US_ITS ---
Exam(s) US ABDOMEN LIMITED EXAM: US ABDOMEN LIMITED CLINICAL HISTORY: r/o cholecystitis TECHNIQUE: Ultrasound abdomen performed using standard protocol. COMPARISON: CT CT THORAX ABDOMEN CTA from 09/02/2023 FINDINGS: Examination was limited due to patient body habitus and bowel gas. GALLBLADDER:There is suboptimal visualization of the gallbladder. The stones seen on the CT scan can not be visualized on this examination. The gallbladder wall measured up to 3 mm. No pericholecystic fluid identified. BILIARY SYSTEM: Common bile duct measures < 7 mm. No intrahepatic biliary ductal dilation. BECKMAN'S SIGN: Negative. IMPRESSION: 1. This is a limited gallbladder ultrasound, limited to the gallbladder. There is limited visualizat ion due to patient body habitus and bowel gas. 2. The gallstones seen on the CT scan from 09/02/2023 cannot be visualized on the current ultrasound. 3. No biliary ductal dilatation. There is a negative sonographic Beckman sign. No sonographic findin gs to suggest acute cholecystitis. DATA REPOSITORY:
[2023-09-03] MEDS: Acetaminophen 500 MG TAB 1000 MG PO ×4 (03:02→23:25)
[2023-09-03] MEDS: Ketorolac 30 MG/ML VIAL IVP ×3 (03:03→18:46)
[2023-09-03] MEDS: PIPERACILLIN/TAZO 3.375 GM in Normal Saline 50 ML IVPB ×4 (05:47→23:24)
[2023-09-03 07:04] LABS: Abs Immature Grans 0.18 10^3/uL (0.0-0.06); Absolute Eosinophil Count 0.07 10^3/uL (0.0-0.7); Absolute Lymphocyte Count 1.12 10^3/uL (1.2-3.4); Absolute Monocyte Count 1.02 10^3/uL (0.1-0.8); Basophils % 0.3; Eosinophils % 0.3; HCT 38.8 % (40.0-50.0); HGB 13.2 g/dL (13.5-17.5); Immature Grans % 0.8; Lymphocytes % 4.8; MCH 29.8 pg (27.0-33.0); MCV 88 fL (80-95); MPV 9.3 fL (8.0-11.0); Monocytes % 4.4; Neutrophils % 89.4; Platelet Count 208 10^3/uL (130-400); RBC 4.43 10^6/uL (4.36-5.78); RDW 13.4 % (11.8-14.1); RDW-SD 43.4 fL; WBC 23.24 10^3/uL (4.4-10.8)
[2023-09-03 07:10] LABS: Absolute Basophil Count 0.07 10^3/uL (0.0-0.2); Absolute Neutrophil Count 20.78 10^3/uL (1.2-6.7)
[2023-09-03 07:25] LABS: ALT 35 U/L (16-63); AST 23 U/L (15-37); Albumin 2.9 g/dL (3.4-5.0); Alkaline Phosphatase 86 U/L (46-116); Anion Gap 8.8 mmol/L (3-11); BUN 15 mg/dL (7-18); CO2 27.2 mmol/L (21.0-32.0); CREATININE 1.2 mg/dL (0.70-1.30); Calcium 8.6 mg/dL (8.5-10.1); Chloride 102 mmol/L (98-107); Estimated GFR 71.42 (mL/min/1.73m2); Glucose 131 mg/dL (74-106); Potassium 3.7 mmol/L (3.5-5.1); Sodium 138 mmol/L (136-145); Total Protein 6.3 g/dL (6.4-8.2)
[2023-09-03 07:26] LABS: Diff Comment Diff Reviewed; RBC Morphology Normal
--- NOTE | 2023-09-03 08:52 | INITIAL_ITS ---
Date of service: 09/03/23 Time of Service: 08:52 Care Management Initial Assmt Initial Assessment REASON FOR HOSPITALIZATION:: Biliary colic PREVIOUS FUNCTIONAL STATUS/SOCIAL/FAMILY SUPPORTS:: Leti lives in a single family home in [place] with his Krista, his 2 sons and one of his son's girlfriends. 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 leti is independent at baseline and does not receive any community services. CURRENT FUNCTIONAL STATUS:: Leti was sitting up in bed visiting with his and son when CM met with him. He was agreeable to conversation and pleasant in manner. Leti shared that he is scheduled to have surgery sometime today. He came in with abdominal pain and was found to have gallstones on imaging. Overnight he developed fever and his WBC increased from 12 to 23, so the [id number] was made to perform a cholecystectomy today. ADVANCE DIRECTIVES:: None. Both Leti and his were provided with blank copies of the [place] AD forms at their request and will assist with completion as needed. Has patient been provided with info about the portal/API?: Yes Did the patient sign up for the portal?: Yes CODE STATUS:: Full Code INSURANCE COVERAGE / FINANCIAL ISSUES:: BC BS CURRENT HOME/COMMUNITY SERVICES/EQUIPMENT:: none PRIMARY CARE PHYSICIAN:: Alexx Owen POTENTIAL DISCHARGE NEEDS:: follow up with surgeon and plan of care PATIENT/FAMILY EDUCATION NEEDS:: Review of discharge instructions, activity, diet, follow up plan, limitations, Ask Me Three TRANSPORTATION:: via private vehicle with PLAN:: Anticipate Leti will be discharged home with no new services. He will follow up with his surgeon, PCP and plan of care and transport with family. CM will follow and assess for discharge needs. PFSH All Active Problems Biliary colic (Acute) Gallstones (Acute) Rash of penis (Acute) Rhinosinusitis (Acute) Hypertension (Chronic) Prediabetes (Acute) Hyperlipidemia (Acute) Colon polyp (Acute) 12/27/[address] Allyssa Martinez, [facility] - tubular adenoma, repeat in five years. Acquired kyphosis (Chronic) thoracic kyphosis Gout (Chronic 11/24/15) Obesity (Chronic) Medical History Hyperglycemia 2020, sxwo6i-3.2%. 1120-lqoq2z-6.1%, FBS-116 GERD (gastroesophageal reflux disease) Not taking any medication at this time Family History Mother , [place] at age 62. Heart disease Myocardial infarction Father , OLD AGE at age 80. No problems noted. Sister No problems noted. Sister No problems noted. Brother No problems noted. Brother Hyperlipidemia Testicular cancer Maternal Grandfather , AGE 55 Heart disease Paternal Grandfather , AGE 83 Alcohol abuse Liver cancer Maternal Grandmother , AGE 94 No problems noted. Paternal Grandmother , AGE 79 Diabetes Son No problems noted. Son Depression Social History Smoking/Tobacco Use Status: Never Second Hand Exposure: Yes Smoking risk assessment performed?: Yes Alcohol Intake: current Alcohol Intake frequency: a few times a month Alcohol type: beer and hard liquor Drug use: Never Substance use type: does not use Counseling given: No Caregiver/Support person: No Household members: spouse, children and other Details: son's girlfriend Housing: house Communication Needs: None Do you need help understanding health information?: Never Pets and animals: No Sexually active: Yes Do you think of yourself as: straight/heterosexual Current gender identity: male What is your relationship status?: How often do you talk on the phone with friends or family?: never How often do you get together with friends or relatives?: once per week How often do you attend anabaptism or muslim services?: 1-3 times per year Do you belong to any clubs or organized social groups?: yes Panel score (0-1 are the most socially isolated patients): 2 What type of physical activity do you participate in: bicycling Duration: 15-30 minutes/day Frequency: 1-2 times per week Nancy/Moravian: No preference Special nancy needs: No Seatbelt use: always Helmet use: Yes Helmet use: always Drive intox or ride w/intox intermodal owner operator truck driver: No Do you feel safe at home: Yes Do you feel safe in your relationship?: Yes SDOH(Care Management) Screening Will the Patient Participate in the Screening?: Yes Do you worry about having a steady place to live?: no Problems where you live: no known problems In the past 12 months, have you had to go without electric, gas, oil or water in your home?: no Have you or anyone in your house had to go without enough food to eat?: no Has lack of transportation kept you from medical appointments or from doing things needed for daily living?: no Has anyone in your support network made you feel unsafe for any reason?: no
[2023-09-03] MEDS: Normal Saline 1,000 ML 75 ML IV ×2 (08:56→16:49)
[2023-09-03] MEDS: Enoxaparin 40 MG/0.4 ML SYR SC (10:34)
[2023-09-03] MEDS: Famotidine 20 MG TAB PO (10:47)
[2023-09-03] MEDS: Allopurinol 300 MG TAB PO (10:47)
[2023-09-03] MEDS: Rosuvastatin 10 MG TAB PO (10:48)
--- NOTE | 2023-09-03 11:05 | W.PM.PROGNOT ---
Date of Service Date of service: 09/03/23 Time of Service: 11:05 Assessment and Plan Assessment and plan (1) Gallstones: Status: Acute Assessment and plan: His white blood cell count and bilirubin are both up today, and I suspect this is acute cholecystitis. He did undergo an ultrasound today, but the visualization of the gallbladder itself was limited by the bowel gas pattern. Given the change in his labs, as well as his ongoing tenderness, I do think that cholecystectomy is the safest option here. Will make arrangements to proceed to the operating room today Subjective Subjective Interval history since last seen: Robbie had some fevers 3 yesterday afternoon that improved a little bit overnight. He might have a little more appetite today. But he does still have pain, mostly in the same location of the mid epigastrium and the right upper quadrant. Exam GI Other: Abdomen remains soft, not very distended. He is tender in the midepigastrium right upper quadrant. Objective Last Vital Signs Temp 99.0 F 09/03/23 04:02 Pulse 97 H 09/03/23 07:31 Resp 18 09/03/23 03:17 BP 110/76 09/03/23 07:31 Pulse Ox 96 09/03/23 07:31 Laboratory Results - last 24 hr 09/03/23 05:36 WBC 23.24 H RBC 4.43 Hgb 13.2 L Hct 38.8 L MCV 88 MCH 29.8 MCHC 34.0 RDW 13.4 Plt Count 208 MPV 9.3 Immature Gran % 0.8 Neutrophils % 89.4 Lymphocytes % 4.8 Monocytes % 4.4 Eosinophils % 0.3 Basophils % 0.3 Nucleated RBC % 0.0 Absolute Neutrophils 20.78 H Absolute Lymphocytes 1.12 L Absolute Monocytes 1.02 H Absolute Eosinophils 0.07 Absolute Basophils 0.07 RBC Morphology Normal Sodium 138 Potassium 3.7 Chloride 102 Carbon Dioxide 27.2 Anion Gap 8.8 BUN 15 Creatinine 1.2 Est GFR (CKD-EPI 2020) 71.42 Glucose 131 H Calcium 8.6 Total Bilirubin 2.0 H AST 23 ALT 35 Alkaline Phosphatase 86 Total Protein 6.3 L Albumin 2.9 L Time Spent with Patient Time Spent with Patient: 35-49 minutes Time was spent: preparing to see the patient(eg.review tests), referring, communicating with other health day care center director, indepentently interpreting results, counseling the patient and care coordination
[2023-09-03] MEDS: Normal Saline Flush 10 ML SYR IVP ×2 (11:11→13:12)
[2023-09-03] MEDS: Indocyanine green 25 MG VIAL 5 MG IVP ×2 (13:08→13:12)
--- NOTE | 2023-09-03 13:10 | ANES.PREOP_ITS ---
General Info Date of Service Date Performed: 09/03/23 Height: 5 ft 10 in Weight: 118.5 kg Body Mass Index (BMI): 37.5 Surgical Procedure: Operation Date: 09/03/23 14:25 Proposed Procedure Side Surgeon p Cholecystectomy Laparoscopic Braydon Ann MD Meds Allergies and Home Medications Allergies Allergy/AdvReac Type Severity Reaction Status Date / Time No Known Allergies Allergy Verified 09/02/23 00:52 Home Medication Medication Instructions Recorded psyllium husk 3.4 gram/5.4 gram 1 tbsp PO DAILY 09/22/20 oral powder (Metamucil) allopurinol 300 mg tablet See Rx Instructions .Route 02/23/23 .COMPLEX #90 tabs famotidine 20 mg tablet See Rx Instructions .Route 02/23/23 .COMPLEX #90 tabs rosuvastatin 10 mg tablet (Crestor) 10 mg PO DAILY #90 tabs 02/23/23 Current Visit Medications: Current Medications Generic Name Dose Route Start Last Admin Trade Name Freq PRN Reason Stop Dose Admin Acetaminophen 1,000 mg 09/02/23 10:00 09/03/23 10:32 Acetaminophen 500 Mg Tab PO 1,000 mg Q6H CHRISTOPHER Administration Al Hydrox/Mg Hydrox/Simethicone 30 ml 09/02/23 10:05 Mylanta Suspension 30 Ml Cup PO Q4H PRN PRN Allopurinol 300 mg 09/03/23 08:30 09/03/23 10:47 Allopurinol 300 Mg Tab PO 300 mg DAILY CHRISTOPHER Administration Enoxaparin Sodium 40 mg 09/02/23 10:00 09/03/23 10:34 Enoxaparin 40 Mg/0.4 Ml Syr SC 40 mg Q24H CHRISTOPHER Administration Famotidine 20 mg 09/03/23 08:30 09/03/23 10:47 Famotidine 20 Mg Tab PO 20 mg DAILY CHRISTOPHER Administration Hydromorphone HCl 1 mg 09/02/23 10:05 09/02/23 10:54 Hydromorphone 2 Mg/Ml Syr IVP 1 mg Q4H PRN PRN Administration Piperacillin Sod/Tazobactam 50 mls @ 100 mls/hr 09/02/23 12:00 09/03/23 12:18 Sod 3.375 gm/ Sodium Chloride IVPB 100 mls/hr Q6H CHRISTOPHER Administration Sodium Chloride 1,000 mls @ 75 mls/hr 09/02/23 18:00 09/03/23 08:56 Saline 1000ml Bag IV 75 mls/hr INFUSION CHRISTOPHER Administration IV Miscellaneous Supplies 1 each 09/02/23 10:05 Iv Access IV DIRECTED CHRISTOPHER Indocyanine Green 5 mg 09/03/23 11:15 09/03/23 13:08 Indocyanine Green 25 Mg Vial IVP 5 mg DIRECTED CHRISTOPHER Administration Ketorolac Tromethamine 30 mg 09/02/23 10:05 09/03/23 11:10 Ketorolac 30 Mg/Ml Vial IVP 09/07/23 10:04 30 mg Q6H PRN PRN Administration Ondansetron HCl 4 mg 09/02/23 10:05 Ondansetron 4 Mg/2 Ml Vial IVP Q4H PRN PRN Psyllium Hydrophilic Mucilloid 1 each 09/03/23 08:30 09/03/23 10:48 Psyllium Pkt PO Not Given DAILY CHRISTOPHER Rosuvastatin Calcium 10 mg 09/03/23 08:30 09/03/23 10:48 Rosuvastatin 10 Mg Tab PO 10 mg DAILY CHRISTOPHER Administration Simethicone 80 mg 09/02/23 10:05 Simethicone 80 Mg Chew PO Q4H PRN PRN Sodium Chloride 0 ml 09/02/23 10:05 09/02/23 10:57 Normal Saline Flush 10 Ml Syr IVP 30 ml PRN PRN Administration Sodium Chloride 0 ml 09/02/23 20:00 09/03/23 11:11 Normal Saline Flush 10 Ml Syr IVP 20 ml BID CHRISTOPHER Administration Sodium Chloride 0 ml 09/02/23 10:05 Normal Saline 10 Ml Vial IJ DIRECTED PRN PFSH Active Problems Active Problems: Problem Status Onset Code Biliary colic K80.50 Gallstones K80.20 Rash of penis R21 Rhinosinusitis J31.0, J32.9 Hypertension I10 Prediabetes R73.03 Hyperlipidemia E78.5 Colon polyp K63.5 Acquired kyphosis M40.209 Gout 11/24/15 M10.9 Obesity E66.9 Medical History Medical History Hyperglycemia 2020, fmyt4t-6.2%. 1024-nlqh4m-0.1%, FBS-116 GERD (gastroesophageal reflux disease) Not taking any medication at this time Tobacco Smoking/Tobacco Use Status: Never Passive smoking exposure: Yes Second hand exposure: Yes Alcohol Alcohol Intake: current Alcohol intake frequency: a few times a month Alcohol type: beer and hard liquor Substance Use Substance use: Never Substance use type: does not use Vital Signs and Lab Results Vital Signs Most Recent Vital Signs in EMR: Most Recent Vital Signs Temp Pulse Resp BP Pulse Ox 37.4 C 97 H 18 110/76 96 09/03/23 12:47 09/03/23 07:31 09/03/23 03:17 09/03/23 07:31 09/03/23 07:31 Lab Results 09/03/23 05:36 09/03/23 05:36 Blood Type / Crossmatch: 2 No Data to Display Complete Blood Count: 2 White Blood Count 23.24 10^3/uL (4.4-10.8) H 09/03/23 05:36 Red Blood Count 4.43 10^6/uL (4.36-5.78) 09/03/23 05:36 Hemoglobin 13.2 g/dL (13.5-17.5) L 09/03/23 05:36 Hematocrit 38.8 % (40.0-50.0) L 09/03/23 05:36 Platelet Count 208 10^3/uL (130-400) 09/03/23 05:36 Complete Metabolic Panel: 2 Sodium 138 mmol/L (136-145) 09/03/23 05:36 Potassium 3.7 mmol/L (3.5-5.1) 09/03/23 05:36 Chloride 102 mmol/L (98-107) 09/03/23 05:36 Carbon Dioxide 27.2 mmol/L (21.0-32.0) 09/03/23 05:36 BUN 15 mg/dL (7-18) 09/03/23 05:36 Creatinine 1.2 mg/dL (0.70-1.30) 09/03/23 05:36 Est GFR (CKD-EPI 2020) 71.42 (mL/min/1.73m2) 09/03/23 05:36 Magnesium 1.8 mg/dL (1.8-2.4) 09/02/23 00:57 Calcium 8.6 mg/dL (8.5-10.1) 09/03/23 05:36 Albumin 2.9 g/dL (3.4-5.0) L 09/03/23 05:36 Glucose 131 mg/dL (74-106) H 09/03/23 05:36 Liver Function Panel: 2 Alanine Aminotransferase (ALT/SGPT) 35 U/L (16-63) 09/03/23 05: 36 Aspartate Amino Transf (AST/SGOT) 23 U/L (15-37) 09/03/23 05:36 Coagulation Panel: 2 No Data to Display Cardiac Panel: 2 Troponin I < 50 ng/L (<or=60) 09/02/23 NT-Pro-B Natriuret Pep 18 pg/mL (<300) 09/02/23 Arterial Blood Gas: 2 No Data to Display Venous Blood Gas: 2 No Data to Display Pancreas Panel: 2 Lipase 31 U/L (16-77) 09/02/23 00:57 Thyroid Panel: 2 No Data to Display Infectious Disease: 2 No Data to Display Blood Cultures: 2 No Data to Display Toxicology Panel: 2 No Data to Display Imaging and Studies Imaging and Studies Study information below may be from another EMR and interpreted by another provider. Please see original notes in EMR for more complete details. EKG Summary: EKG PATIENT NAME: Mathieu Lemons UNIT #: [id number] ORDERING PROVIDER: Amie Velazquez M.D. PRIMARY CARE PROVIDER: Alexx Wilson DNP DATE/TIME OF SERVICE: 09/02/23 0245 : 1970 PERFORMING LOCATION: ER APPROVED REPORT Exam: Resting ECG Reason for Exam: chest pain Patient Location: E HR:72 bpm ECG Measurements Heart Rate 72 AXIS AZ 148 P 32 QRSd 89 QRS 38 QT 377 T6 QTc 414 Conclusion Sinus rhythm...normal P axis, V-rate 60- [address] segment or T wave abnormalities to suggest occluisve VA - <Electronically signed by Amie Velazquez M.D. in OV> E-Sign Date: 09/02/23 E-Sign Time: 0301 Anesthesia Assessment and Plan Anesthesia History Personal History: No History of Anesthesia Complications Family History: No Family History of Anesthesia Complications Exercise Tolerance Exercise Tolerance: Metabolic Equivalents>4 Pertinent Negatives Pertinent Negatives: No Major Cardiovascular Symptoms or Complaints, No Major Pulmonary Symptoms or Complaints and No History of CVA/TIA Cardiac & Pulmonary Exam Cardiac Exam: Normal S1/S2 Heart Sounds Pulmonary Exam: Clear Bilateral Breath Sounds Implantable Cardiac Device Does patient have a Pacemaker or an ICD?: No Airway Exam Known Difficult Airway: No Mallampati Class: 3 Mouth Opening: Normal (> 3cm) Thyromental Distance: Greater than 3 cm Neck Range of Motion: Limited ROM (pt slightly kyphotic ) Neck Circumference: Thick Teeth Condition: Normal Dentition ASA Classification ASA Score: ASA 2 Emergency Case?: No NPO Status NPO Status: NPO Clears >2 hours, Solids >8 hours Anesthesia Plan Resuscitation Status: Full Code Anesthesia Technique: General Anesthesia Airway Planned: Endotracheal Tube Monitors Used: Standard Monitors
[2023-09-03] MEDS: Bupivacaine 0.25% Pres-Free 30 ML VIAL (15:05)
--- NOTE | 2023-09-03 16:16 | GB_PTH ---
PATIENT: Mathieu Lemons LOC: U#:[id number] AGE/SX: 53/M ROOM: [id number] RE09/02/[address]: Braydon Ann MD : 1970 BED: A DIS: 09/05/2023 SPEC #: [id number] RECD: 09/03/23 17:46 STATUS: HEATHER REQ #: [id number] KYLAH: 09/03/23 16:[address]: Braydon Ann DEPT: Surgical Specimen RECD BY: Annalisa Parikh ENTERED: 09/03/23 17:46 SP TYPE: GB OTHR DR: Alexx Wilson DNP Tissues: 1 - GALLBLADDER Procedures: GROSS AND MICRO LEVEL 3 Comments: [id number]
--- NOTE | 2023-09-03 16:48 | W.PM.OP ---
Date of service: 09/03/23 Time of Service: 16:48 Operative Note Operative Note DATE OF PROCEDURE: 09/03/23 PRE-OP DIAGNOSIS: Biliary colic POST-OP DIAGNOSIS: other (Gangrenous cholecystitis) PROCEDURE: Laparoscopic cholecystectomy SURGEON: Braydon Ann BOX [employer]OCK ATTACHER: Carlton Lopez ANESTHESIA TYPE: Local By Surgeon and General LMA/ETT Refer to Anesthesia Record ESTIMATED BLOOD LOSS: 25 PATHOLOGY: other (Gallbladder) COMPLICATIONS: None Patient was transported to: PACU Patient's condition: stable Indications: Robbie is a 53-year-old male came to the emergency department yesterday with midepigastric pain. CT scan suggested the possibility cholelithiasis, and possible gallbladder wall thickening. He was admitted with antibiotics, and over the course of the subsequent 24 hours continued to have some fevers and ongoing pain. Therefore, he underwent an ultrasound of the gallbladder that demonstrated no evidence of acute cholecystitis. However, given the patient's tenderness, and a transient increase in his serum bilirubin, felt the safest thing to do is proceed with cholecystectomy Findings: Gangrenous cholecystitis Procedure Description: After satisfactory induction of general anesthesia, I prepped and draped the abdomen in usual fashion. Next, I began with a periumbilical incision. I dissected down to the fascia and elevated it with Franklin clamps. I incised it sharply. Next, I passed a 12 mm operating port in the umbilical site. I secured it to the fascia with 0 Vicryl stitches. I then insufflated the peritoneal cavity. Next I inserted a 5 mm 30 degree scope and examined the underlying viscera. There was no evidence of injury created upon entry. I then placed the patient in some reverse Trendelenburg and left side down positioning. Then, with the assistance of the laparoscope, I used local anesthetic to anesthetize the midepigastric and 2 right upper quadrant port sites. Under the vision of the laparoscope, I passed 3 more 5 mm ports. There were thick adhesions of the greater omentum over the dome of the gallbladder. Using tedious dissection, I was able to isolate the dome, which had patchy ischemia. The gallbladder was quite distended, and a needle was used to decompress it. Once some of the bile was drained, we were able to grasp the dome and retracted cephalad. I began by dissecting the gallbladder infundibulum. I worked in a lateral to medial fashion. There was quite a bit of inflammation. Dissection was performed using the assistance of indocyanine green visualization. Once I skeletonized the cystic duct I turned my attention to the artery. Again, the adhesions were quite thick all through the triangle of Calho. With tedious dissection, I was able to identify the artery, which appeared relatively large for its size. Therefore, I continued the dissection up towards the gallbladder wall. As we proceeded towards the gallbladder, it was clear that there was a branch heading off into the liver parenchyma, representing the true right hepatic artery. With ongoing dissection, I was able to identify a very short cystic artery moving up into the posterior aspect of the gallbladder. This was carefully isolated. This dissection was quite tedious. I was able to place clips across the true cystic artery preserving as much flow as I could through the right hepatic. In order to safely clip and divide the artery, I did have to for separate the duct. I did have an excellent view of the critical view of safety, however, it was clear that the duct was in fact the true cystic duct. Therefore, the duct was doubly clipped and divided, before doing the same with the short segment of cystic artery.. I then used electrocautery to dissect the gallbladder off the gallbladder fossa. The gallbladder wall was quite inflamed, and there were several areas of near full-thickness necrosis. Once the gallbladder was completely removed from the gallbladder fossa, I passed it into an Endo Catch bag and removed it by way of the umbilical site. I examined the surgical field. It was hemostatic. I irrigated the field. There was no bleeding. I then removed the 5 mm ports under the vision of the laparoscope. Finally, I removed the umbilical port site and closed the fascia with Vicryl stitches. Sites were irrigated, and the skin was closed with subcuticular stitches. Bandages were applied, patient was awakened from anesthesia, and transferred to the recovery unit.
--- NOTE | 2023-09-03 16:53 | PHA.REVIEW2 ---
Pharmacy Admission Review Admission Clinical Review Admission Pharmacy Review: (Updated 09/02/23 @ 07:52 by Winter Teresa MD) Biliary colic (Acute) Gallstones (Acute) No Known Allergies Allergy (Verified 09/02/23 00:52) Resuscitation Status Full Code Height 5 ft 10 in Weight 118.5 kg Pharmacy Admission Review Renal Dosing Renal Dosing: BUN 15 mg/dL (7-18) 09/03/23 05:36 Creatinine 1.2 mg/dL (0.70-1.30) 09/03/23 05:36 Medications needing adjustments: Reviewed (crcl = 89, no adjustments needed) Anticoagulation Anticoagulation: Hgb 13.2 g/dL (13.5-17.5) L 09/03/23 05:36 Hct 38.8 % (40.0-50.0) L 09/03/23 05:36 Plt Count 208 10^3/uL (130-400) 09/03/23 05:36 Creatinine 1.2 mg/dL (0.70-1.30) 09/03/23 05:36 DVT Prophylaxis: Reviewed Medications: Enoxaparin (40 mg q24h) Therapeutic Anticoagulation: N/A Opiate Usage Evaluate Pain Scale/Pains Meds: Reviewed (hydromorphone 1 mg IV q4h prn - has used one dose + 2 doses of morphine in the ED) Scheduled Bowel Reg ordered if on Opiates?: Yes (scheduled psyllium only) Relevant Labs Relevant Labs: Sodium 138 mmol/L (136-145) 09/03/23 05:36 Potassium 3.7 mmol/L (3.5-5.1) 09/03/23 05:36 Chloride 102 mmol/L (98-107) 09/03/23 05:36 Magnesium 1.8 mg/dL (1.8-2.4) 09/02/23 00:57 Electrolytes, C-Reactive P, ESR: Reviewed (wbc up from yesterday) DM Control DM Control: Reviewed (prediabetes diagnosis. most recent a1c = 6.3% 11/08/22) Insulin Dosing, Diabetic Medication: not on any diabetic meds Cardiac Review Cardiac Review: Troponin I < 50 ng/L (<or=60) 09/02/23 04:07 NT-Pro-B Natriuret Pep 18 pg/mL (<300) 09/02/23 00:57 BP, HR, EF%: Reviewed QTc Review QTc: Reviewed (QTc = 414 09/02/23) IV to PO Switch IV Medications: Reviewed (IV meds s/p cholecystectomy, change to PO when appropriate) Home Meds Home Med List reviewed: Reviewed Current Meds Current Medication Order Review: Reviewed Pharmacy Antibiotic Review Pharmacy Antibiotic Activity: Reviewed, no change Comments: zosyn 3.375 q6h for gangrenous cholecystitis (went to OR today), change to PO or dc when improved
--- NOTE | 2023-09-03 17:45 | W.ANESPOSTOP ---
Postoperative Evaluation Date, Time and Location Date Performed: 09/03/23 Time Performed: 17:45 Patient Location: PACU Vital Signs Most Recent Imported Vital Signs: Most Recent Vital Signs Temp Pulse Resp BP Pulse Ox 36.4 C L 92 H 20 126/80 95 09/03/23 17:40 09/03/23 17:40 09/03/23 17:40 09/03/23 17:40 09/03/23 17:40 Pain Score Most Recent Pain Score: Most Recent Pain Score Pain Level 2 09/03/23 04:02 Assessment Mental Status: Arousable with meaningful communication Airway and Respiratory Function: Patent airway with normal (patient baseline) respiratory exam Cardiovascular Function: Hemodynamically Stable Hydration Status: Adequately Hydrated Nausea & Vomiting: No Nausea or Vomiting Pain: Pain is tolerable per patient Peripheral Nerve Block: Patient did not receive a nerve block
[2023-09-03] MEDS: Simethicone 80 MG CHEW PO (18:45)
[2023-09-03] MEDS: HYDROmorphone 2 MG/ML SYR 1 MG IVP (19:26)
[2023-09-04] VITALS (11 sets, daily range): BP systolic 123–179; BP diastolic 72–91; PULSE 64–88; RESP 16–20; TEMP 36.2–37.2; O2SAT 93–100
[2023-09-04] MEDS: Ketorolac 30 MG/ML VIAL IVP ×2 (03:10→12:31)
[2023-09-04] MEDS: PIPERACILLIN/TAZO 3.375 GM in Normal Saline 50 ML IVPB ×4 (06:10→23:31)
[2023-09-04] MEDS: Normal Saline Flush 10 ML SYR IVP ×2 (06:50→23:31)
[2023-09-04 07:21] LABS: HCT 36.7 % (40.0-50.0); HGB 12.4 g/dL (13.5-17.5); MCH 29.7 pg (27.0-33.0); MCHC 33.8 % (32.0-36.0); MCV 88 fL (80-95); MPV 9.7 fL (8.0-11.0); Platelet Count 240 10^3/uL (130-400); RBC 4.18 10^6/uL (4.36-5.78); RDW 13.3 % (11.8-14.1); RDW-SD 43.4 fL; WBC 20.62 10^3/uL (4.4-10.8)
--- NOTE | 2023-09-04 07:25 | NUR.NOTE ---
Nursing Note: Patient IV was leaking on assessment. Discontinued and patient believes he will go home today and declined starting another IV. Next IV antibiotic is due at noon, reported to oncoming RN and Preceptor.
[2023-09-04 07:45] LABS: ALT 79 U/L (16-63); AST 59 U/L (15-37); Albumin 2.7 g/dL (3.4-5.0); Alkaline Phosphatase 87 U/L (46-116); Bilirubin, Direct 0.3 mg/dL (0.0-0.2); Bilirubin, Total 0.6 mg/dL (0.2-1.0); Total Protein 5.7 g/dL (6.4-8.2)
[2023-09-04 07:48] LABS: ALT 74 U/L (16-63); AST 53 U/L (15-37); Albumin 2.6 g/dL (3.4-5.0); Alkaline Phosphatase 84 U/L (46-116); Anion Gap 10.2 mmol/L (3-11); BUN 16 mg/dL (7-18); Bilirubin, Total 0.6 mg/dL (0.2-1.0); CO2 23.8 mmol/L (21.0-32.0); CREATININE 1.2 mg/dL (0.70-1.30); Calcium 8.8 mg/dL (8.5-10.1); Chloride 102 mmol/L (98-107); Estimated GFR 71.42 (mL/min/1.73m2); Glucose 201 mg/dL (74-106); Potassium 3.8 mmol/L (3.5-5.1); Sodium 136 mmol/L (136-145); Total Protein 6.6 g/dL (6.4-8.2)
--- NOTE | 2023-09-04 08:55 | PDOC.CMPRO ---
Date of service: 09/04/23 Time of Service: 08:56 Care Management Progress Note Progress Note Text Progress Note Text: S/O:Robbie was sitting up in a chair when CM met with him. His was visiting at the time and shared that she is really tired. 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 Robbie's color was good and he was smiling and engaged well with CM. Robbie informed CM that his WBC is still elevated, although lower than yesterday, and the doctor informed him that he would need to remain hospitalized until his infection markers improve. His vital signs are stable and he remains afebrile. CM provided Robbie with puzzle books and coloring materials to combat hospital boredom. A: Robbie is a 53 year old man admitted with biliary colic on 09/02/23 P:Anticipate Robbie will be discharged home with no new services. He will follow up with his surgeon, PCP and plan of care and transport with family. CM will follow and assess for discharge needs.
[2023-09-04] MEDS: Famotidine 20 MG TAB PO (09:43)
[2023-09-04] MEDS: Allopurinol 300 MG TAB PO (09:43)
[2023-09-04] MEDS: Psyllium PKT 1 EACH PO (09:43)
[2023-09-04] MEDS: Rosuvastatin 10 MG TAB PO (09:43)
[2023-09-04] MEDS: Enoxaparin 40 MG/0.4 ML SYR SC (09:44)
[2023-09-04] MEDS: Acetaminophen 500 MG TAB 1000 MG PO ×2 (17:27→23:30)
--- NOTE | 2023-09-04 21:07 | W.PM.PROGNOT ---
Date of Service Date of service: 09/04/23 Time of Service: 19:00 Assessment and Plan Assessment and plan (1) Biliary colic: Status: Acute (2) Gallstones: Status: Acute (3) GERD (gastroesophageal reflux disease): (4) Rhinosinusitis: Status: Acute (5) Hypertension: Status: Chronic (6) Prediabetes: Status: Acute (7) Hyperlipidemia: Status: Acute (8) Gout: Status: Chronic (9) Obesity: Status: Chronic (10) S/P laparoscopic cholecystectomy: Status: Acute (11) Cholelithiasis and acute cholecystitis without obstruction: Status: Acute Assessment and plan: Postop day #1 status post lap vani for acute cholecystitis and cholelithiasis -Patient still has a 20,000 white count today is we will keep him in the hospital for 1 more day of IV antibiotics. IV will be resumed. -Multimodality pain management plan -Probiotics -We discussed the importance of walking and pulmonary toilet to prevent DVT and pneumonia -We discussed expectations and cares going home -Minimal elevation of LFTs. -Clinically patient is doing well. Will repeat labs in a.m. and if trending down plan DC on Augmentin and follow-up in clinic in 2 weeks time Subjective Subjective Interval history since last seen: Pt is doing well. no headaches. No CP or SOB. no productive cough. no dysuria. no leg pain or swelling. He has been up and walking. He notes that he is having loose stools, approximately 2 today. No problems with control.. His pain is well-controlled. He has been tolerating a regular diet. He is doing his incentive spirometry. Exam Narrative Exam Narrative: PHYSICAL EXAM GENERAL APPEARANCE: Alert, healthy appearance, oriented, x 3,? in no acute distress HYDRATION: Well hydrated HEAD, EYES, EARS, NECK, THROAT: Head is normocephalic, pupils equal, round, reactive to light and accommodation, ocular movement intact, sclera clear and no jaundice. ?Dentition intact. No sore throat.? No jaw pain. No thrush LUNGS: normal respiration/normal chest excursion. ?Clear to auscultation bilaterally. ?No wheeze. ?HEART: Regular rate and rhythm. no murmurs EXTREMITY: No edema or cyanosis.? no leg pain, redness, swelling.? ABDOMEN: soft and non-tender to palpation.? Normal bowel sounds.? Incisions are clean dry and intact. Objective Last Vital Signs Temp 36.9 C 09/04/23 16:49 Pulse 72 09/04/23 16:49 Resp 18 09/04/23 16:49 BP 164/80 H 09/04/23 16:49 Pulse Ox 100 09/04/23 16:49 Laboratory Results - last 24 hr 09/04/23 09/04/23 09/04/23 05:50 05:50 05:50 WBC 20.62 H RBC 4.18 L Hgb 12.4 L Hct 36.7 L MCV 88 MCH 29.7 MCHC 33.8 RDW 13.3 Plt Count 240 MPV 9.7 Sodium 136 Potassium 3.8 Chloride 102 Carbon Dioxide 23.8 Anion Gap 10.2 BUN 16 Creatinine 1.2 Est GFR (CKD-EPI 2020) 71.42 Glucose 201 H Calcium 8.8 Total Bilirubin 0.6 0.6 Conjugated Bilirubin 0.3 H AST 53 H 59 H ALT 74 H Alkaline Phosphatase Total Protein Albumin 09/04/23 09/04/23 09/04/23 05:50 05:50 05:50 WBC RBC Hgb Hct MCV MCH MCHC RDW Plt Count MPV Sodium Potassium Chloride Carbon Dioxide Anion Gap BUN Creatinine Est GFR (CKD-EPI 2020) Glucose Calcium Total Bilirubin Conjugated Bilirubin AST ALT 79 H Alkaline Phosphatase 84 87 Total Protein 6.6 5.7 L Albumin 2.6 L 09/04/23 05:50 WBC RBC Hgb Hct MCV MCH MCHC RDW Plt Count MPV Sodium Potassium Chloride Carbon Dioxide Anion Gap BUN Creatinine Est GFR (CKD-EPI 2020) Glucose Calcium Total Bilirubin Conjugated Bilirubin AST ALT Alkaline Phosphatase Total Protein Albumin 2.7 L Time Spent with Patient Time Spent with Patient: 25-34 minutes Time was spent: preparing to see the patient(eg.review tests), obtaining and/or reviewing separately otained hiistory, ordering medications,tests, procedures, referring, communicating with other health healthcare sales representative, indepentently interpreting results, counseling the patient and care coordination
[2023-09-05] MEDS: Normal Saline Flush 10 ML SYR IVP ×2 (00:37→09:15)
[2023-09-05] MEDS: Acetaminophen 500 MG TAB 1000 MG PO ×2 (05:37→12:13)
[2023-09-05] MEDS: PIPERACILLIN/TAZO 3.375 GM in Normal Saline 50 ML IVPB ×2 (05:37→12:14)
[2023-09-05 06:53] LABS: Abs Immature Grans 0.11 10^3/uL (0.0-0.06); Absolute Basophil Count 0.02 10^3/uL (0.0-0.2); Absolute Lymphocyte Count 1.44 10^3/uL (1.2-3.4); Absolute Monocyte Count 1.13 10^3/uL (0.1-0.8); Basophils % 0.1; HGB 12.5 g/dL (13.5-17.5); Immature Grans % 0.5; Lymphocytes % 7.1; MCH 29.8 pg (27.0-33.0); MCHC 34.7 % (32.0-36.0); MCV 86 fL (80-95); MPV 9.4 fL (8.0-11.0); Monocytes % 5.6; Neutrophils % 86.7; Platelet Count 278 10^3/uL (130-400); RBC 4.19 10^6/uL (4.36-5.78); RDW 13.2 % (11.8-14.1); RDW-SD 40.8 fL; WBC 20.26 10^3/uL (4.4-10.8)
[2023-09-05 07:00] LABS: Absolute Neutrophil Count 17.57 10^3/uL (1.2-6.7)
[2023-09-05 07:20] VITALS: BP 162/81; PULSE 65; RESP 18; TEMP 36.3; O2SAT 94
[2023-09-05 07:23] LABS: ALT 88 U/L (16-63); AST 42 U/L (15-37); Albumin 2.7 g/dL (3.4-5.0); Alkaline Phosphatase 91 U/L (46-116); Bilirubin, Direct 0.2 mg/dL (0.0-0.2); Bilirubin, Total 0.5 mg/dL (0.2-1.0); Total Protein 6.6 g/dL (6.4-8.2)
--- NOTE | 2023-09-05 09:08 | PDOC.CMPRO ---
Date of service: 09/05/23 Time of Service: 09:08 Care Management Progress Note Progress Note Text Progress Note Text: S/O:Robbie was sitting up in a chair when CM met with him. A: Robbie is a 53 year old man admitted with biliary colic on 09/02/23 P:Anticipate Robbie will be discharged home with no new services. He will follow up with his surgeon, PCP and plan of care and transport with family. CM will follow and assess for discharge needs.
[2023-09-05] MEDS: Enoxaparin 40 MG/0.4 ML SYR SC (09:13)
[2023-09-05] MEDS: Allopurinol 300 MG TAB PO (09:14)
[2023-09-05] MEDS: Famotidine 20 MG TAB PO (09:14)
[2023-09-05] MEDS: Psyllium PKT 1 EACH PO (09:15)
[2023-09-05] MEDS: Rosuvastatin 10 MG TAB PO (09:15)
--- NOTE | 2023-09-05 14:20 | DSE_ITS ---
Date of service: 09/05/23 Time of Service: 14:21 DS: Diagnosis Discharge Diagnosis (1) Biliary colic: Status: Acute Asessment and Plan: Pt is POD#2 s/p laparoscopic cholecystectomy for acute cholecystitis, and is feeling well. His WBC is slowly trending down, but clinically he is doing well. Pt feels safe for discharge home. --d/c home on Augmentin --repeat CBC as outpaitent --f/u in 1-2 weeks (2) Gallstones: Status: Acute Asessment and Plan: s/p lap vani (3) GERD (gastroesophageal reflux disease): (4) Rhinosinusitis: Status: Acute (5) Hypertension: Status: Chronic (6) Prediabetes: Status: Acute (7) Hyperlipidemia: Status: Acute (8) Gout: Status: Chronic (9) Obesity: Status: Chronic (10) S/P laparoscopic cholecystectomy: Status: Acute (11) Cholelithiasis and acute cholecystitis without obstruction: Status: Acute Discharge Plan Disposition Patient Disposition: Home Condition: Improving Discharge Details Reason For Visit: Biliary Colic Admit Date/Time: 09/02/23 08:41 Admit Provider: Braydon Ann Attending Provider: Braydon Ann Primary Care Provider: Alexx Joe Hospital Course Hospital Course: This is a 53-year-old male admitted on 09/02/[address] Ann with biliary colic. He was initially treated with antibiotics but his WBC and bilirubin continued to climb. He was taken to the operating room on 09/03/23 for laparoscopic cholecystectomy, and an infected gallbladder was encountered. Postoperatvely, he has done well though his WBC remains elevated at 20K. He is tolerating a diet, ambulating, voiding well, and passing flatus. His pain is well-controlled. Home Meds and New Rx's Prescriptions: New tramadol 50 mg Tablet 50 mg PO Q4H PRN PRNQty: 9 0RF amoxicillin-pot clavulanate [Augmentin] 500-125 mg tablet 1 tab PO BID Qty: 6 0RF Continued Metamucil 3.4 gram/5.4 gram powder 1 tbsp PO DAILY Rx Instructions: mix into at least 8 oz of water or juice before administering allopurinol 300 mg tablet See Rx Instructions .ROUTE .COMPLEX Qty: 90 2RF Dose Instruction: TAKE ONE TABLET BY MOUTH EVERY DAY Rx Instructions: TAKE ONE TABLET BY MOUTH EVERY DAY famotidine 20 mg tablet See Rx Instructions .ROUTE .COMPLEX Qty: 90 1RF Dose Instruction: TAKE ONE TABLET BY MOUTH EVERY DAY Rx Instructions: TAKE ONE TABLET BY MOUTH EVERY DAY rosuvastatin [Crestor] 10 mg tablet 10 mg PO DAILY Qty: 90 3RF Discharge Instructions Instructions: Laparoscopic Cholecystectomy (DC) Additional Instructions: Continue taking acetaminophen at home. Take care not to exceed maximum dosage on bottle. May shower. Do not scrub wounds. Let soapy water wash over and pat dry. Limit lifting to <[address] for at least one week, and while taking pain meds. Call hospital for any fevers >100.4F, development of nausea/vomiting, significant changes/irritation in wounds, etc. Follow-up for out-patient bloodwork on 09/07. Activity:: Limit lifting <15lbs Equipment/Supplies:: No Equipment Needed Diet:: As Tolerated Discharge Orders Discharge Orders: Discharge Order (Routine); Ordered 09/05/23 Ordered By: Mike Melendrez DS: Summary Time Spent with Patient providing and/or coordinating discharge services: Less than 30 minutes Status at Discharge Functional status at discharge: independent ambulation Overall status at discharge: patient is progressing back to baseline Mental Status: mental status grossly normal Speech and Movement: speech and movement normal Mood: congruent mood Affect: normal affect Quality:SDOH Health Related Social Needs: No Data to Display Exam Const General: cooperative, healthy appearing, comfortable and no acute distress Nutritional Appearance: obese Orientation: alert, awake and oriented x3 Eyes Sclera: sclerae normal Neck Neck: normal visual inspection Resp Effort & Inspection: normal respiratory effort and able to speak in complete se ntences Auscultation: clear to auscultation bilaterally Cardio Rate: regular rate Rhythm: regular rhythm Heart Sounds: S1 normal and S2 normal GI Inspection: large pannus Other: soft, apppropraitely tender, no guarding, no rebound, dressings clean/dry/ intact Skin General skin exam: no rashes or lesions noted Wounds: wounds noted Neuro General: patient alert, patient awake and patient oriented x3 Cognition: normal cognition Speech: speech normal Psych Appearance: grossly normal Mental Status: mental status grossly normal Speech and Movement: speech and movement normal Mood: congruent mood Affect: normal affect Thought Process: normal Thought Content: normal Insight: insight good Judgment: judgment good DS: Data Vitals/I&O Vitals and I&O: Vital Signs Temperature 97.3 F L 09/05/23 07:20 Temperature Source Tympanic 09/05/23 07:20 Pulse 65 09/05/23 07:20 Pulse Rhythm Regular 09/05/23 12:28 Pulse 81 09/02/23 01:32 Respiratory Rate 18 09/05/23 07:20 Respiratory Effort Normal, Non-Labored 09/05/23 12:28 Respiratory Depth Normal 09/05/23 12:28 Respiratory Pattern Normal 09/05/23 12:28 Blood Pressure 162/81 H 09/05/23 07:20 Blood Pressure Mean 103 09/04/23 15:32 Blood Pressure Position Supine 09/02/23 10:25 Pulse Oximetry 94 09/05/23 07:20 Respiratory End-tidal CO2 30 09/03/23 17:40 Oxygen Delivery Method Room Air 09/05/23 07:20 Oxygen Flow Rate 0 09/05/23 07:20 Pain Level 0 09/05/23 07:20 Comment Vital Signs completed after completion of patient ambulating from bed to sink to use urinal. Medicated with Toradol. Denies any complaints of feeling dizzy/lightheaded. 09/04/23 03:23 Intake & Output 09/04/23 09/05/23 09/05/23 23:59 11:59 23:59 Intake Total 1200 / 2520 100 / 100 Output Total 1000 / 1750 Balance 200 / 770 100 / 100 Intake: IV 100 / 210 100 / 100 Oral 1100 / 2310 Output: Urine 1000 / 1750 Other: Urine Color Straw Light Theresa Urine Appearance Clear Clear Urine Odor None Voiding Methods Urinal Data Completed and Pending Labs on day of discharge: Labs from last 24 hours 09/05/23 06:20 WBC 20.26 H RBC 4.19 L Hgb 12.5 L Hct 36.0 L MCV 86 MCH 29.8 MCHC 34.7 RDW 13.2 Plt Count 278 MPV 9.4 Immature Gran % 0.5 Neutrophils % 86.7 Lymphocytes % 7.1 Monocytes % 5.6 Eosinophils % 0.0 Basophils % 0.1 Nucleated RBC % 0.0 Absolute Neutrophils 17.57 H Absolute Lymphocytes 1.44 Absolute Monocytes 1.13 H Absolute Eosinophils 0.00 Absolute Basophils 0.02 Total Bilirubin 0.5 Conjugated Bilirubin 0.2 AST 42 H ALT 88 H Alkaline Phosphatase 91 Total Protein 6.6 Albumin 2.7 L PFSH All Active Problems (Updated 09/05/23 @ 15:26 by Mike Melendrez MD) Leukocytosis (Acute) Cholelithiasis and acute cholecystitis without obstruction (Acute) S/P laparoscopic cholecystectomy (Acute) Biliary colic (Acute) Gallstones (Acute) Rash of penis (Acute) Rhinosinusitis (Acute) Hypertension (Chronic) Prediabetes (Acute) Hyperlipidemia (Acute) Colon polyp (Acute) 12/27/[address] Allyssa Martinez, [facility] - tubular adenoma, repeat in five years. Acquired kyphosis (Chronic) thoracic kyphosis Gout (Chronic 11/24/15) Obesity (Chronic) Medical History Hyperglycemia 2020, bsap9z-6.2%. 2021-imxq4b-8.1%, FBS-116 GERD (gastroesophageal reflux disease) Not taking any medication at this time Family History Mother , [place] at age 62. Heart disease Myocardial infarction Father , OLD AGE at age 80. No problems noted. Sister No problems noted. Sister No problems noted. Brother No problems noted. Brother Hyperlipidemia Testicular cancer Maternal Grandfather , AGE 55 Heart disease Paternal Grandfather , AGE 83 Alcohol abuse Liver cancer Maternal Grandmother , AGE 94 No problems noted. Paternal Grandmother , AGE 79 Diabetes Son No problems noted. Son Depression Social History Smoking/Tobacco Use Status: Never Second Hand Exposure: Yes Smoking risk assessment performed?: Yes Alcohol Intake: current Alcohol Intake frequency: a few times a month Alcohol type: beer and hard liquor Drug use: Never Substance use type: does not use Counseling given: No Caregiver/Support person: No Household members: spouse, children and other Details: son's girlfriend Housing: house Communication Needs: None Do you need help understanding health information?: Never Pets and animals: No Sexually active: Yes Do you think of yourself as: straight/heterosexual Current gender identity: male What is your relationship status?: How often do you talk on the phone with friends or family?: never How often do you get together with friends or relatives?: once per week How often do you attend christian or yazdanism services?: 1-3 times per year Do you belong to any clubs or organized social groups?: yes Panel score (0-1 are the most socially isolated patients): 2 What type of physical activity do you participate in: bicycling Duration: 15-30 minutes/day Frequency: 1-2 times per week Nancy/Yarsani: No preference Special nancy needs: No Seatbelt use: always Helmet use: Yes Helmet use: always Drive intox or ride w/intox after school driver: No Do you feel safe at home: Yes Do you feel safe in your relationship?: Yes Time Spent with Patient Time Spent with Patient: 45-69 minutes Time was spent: preparing to see the patient(eg.review tests), obtaining and/or reviewing separately otained hiistory, ordering medications,tests, procedures, referring, communicating with other health career and technology education teacher, indepentently interpreting results and counseling the patient
--- NOTE | 2023-09-05 14:49 | CHAPLAIN ---
Robbie was up in the chair visiting with his when I visited. I explained my role and offered support.
[2023-09-05 15:11] VITALS: BP 149/84; PULSE 67; RESP 17; TEMP 36.7; O2SAT 96
--- NOTE | 2023-09-05 17:47 | PDOC.CMDIS ---
Date of service: 09/05/23 Time of Service: 17:47 LACE Index Scoring Tool Questions: Length of Stay (in days): 3 Was the patient admitted via the E.D.?: Yes E.D. Visits: 1 Answers: Total Score: 7 Risk of Readmission: Low Risk Care Management Discharge Plan Reason for Hospitalization: Biliary colic Discharge Plan: Robbie will be discharged home with no new services. He will follow up with his surgeon, PCP and plan of care and transport with family. Patient/Family Education Needs: Review of discharge instructions, activity, diet, follow up plan, limitations, Ask Me Three [facility] Health Related Social Needs: No Data to Display
== END 2023-09-05 16:19 | disposition home or self-care (01) ==
LOC: ER 08:45 → ICU 10:03 → MS 09-04 16:12
PROVIDERS: Student in an Organized Health Care Education/Training Program; Surgery; Admitting Provider Surgery; Emergency Provider Emergency Medicine Emergency Medical Services; PCP Nurse Practitioner Family; Visit Provider Surgery
PROC: 0FT44ZZ Resection of Gallbladder, Percutaneous Endoscopic Approach (ICD-10-PCS; CPT 47562; principal; 2023-09-03 14:15)
DX: K81.0 Acute cholecystitis (principal); K82.8 Other specified diseases of gallbladder; K82.A1 Gangrene of gallbladder in cholecystitis; I10 Essential (primary) hypertension; E78.5 Hyperlipidemia, unspecified; R73.03 Prediabetes; M10.9 Gout, unspecified; E66.9 Obesity, unspecified; Z68.38 Body mass index [BMI] 38.0-38.9, adult
CPT/HCPCS: 47562; 00123; 36415; 71275; 74175; 80053; 80076; 83690; 85027; 93005; 96361; 96372; 96374; 96375; 96376; 99285; J1650; 76705; 83735; 83880; 84484; 85025; 88304; 93010; G0378; J0665; J1100; J1170; J1885; J2001; J2250; J2270; J2371; J2405; J2543; J2704; J3010; J3490

== ENCOUNTER 2023-09-07 13:00 | Outpatient (CLI) | payer BC, SELFPAY ==
[2023-09-07 11:10] LABS: Abs Immature Grans 0.14 10^3/uL (0.0-0.06); Absolute Basophil Count 0.07 10^3/uL (0.0-0.2); Absolute Lymphocyte Count 2.14 10^3/uL (1.2-3.4); Absolute Monocyte Count 1.26 10^3/uL (0.1-0.8); Basophils % 0.6; Eosinophils % 2.1; HCT 45.9 % (40.0-50.0); HGB 15.7 g/dL (13.5-17.5); Immature Grans % 1.2; Lymphocytes % 18.3; MCH 29.4 pg (27.0-33.0); MCHC 34.2 % (32.0-36.0); MCV 86 fL (80-95); MPV 8.5 fL (8.0-11.0); Monocytes % 10.8; Platelet Count 341 10^3/uL (130-400); RBC 5.34 10^6/uL (4.36-5.78); RDW 13.2 % (11.8-14.1); RDW-SD 41.1 fL
[2023-09-07 11:11] LABS: Absolute Eosinophil Count 0.25 10^3/uL (0.0-0.7); Absolute Neutrophil Count 7.84 10^3/uL (1.2-6.7)
== END 2023-09-07 13:01 | disposition home or self-care (01) ==
PROVIDERS: PCP Nurse Practitioner Family; Visit Provider Surgery
DX: D72.829 Elevated white blood cell count, unspecified (principal); K80.00 Calculus of gallbladder with acute cholecystitis without obstruction
CPT/HCPCS: 36415; 85025

== ENCOUNTER 2023-10-17 15:24 | Outpatient (REF) | payer BC, SELFPAY ==
[2023-10-17 14:14] LABS: COMMENT (LAB VIEW ONLY) 31.01 mg/dL; Microalb ug/mg Crea 6.1 ug/mg Cr
== END 2023-10-17 15:25 | disposition home or self-care (01) ==
LOC: LBN 15:24
PROVIDERS: PCP Nurse Practitioner Family; Visit Provider Nurse Practitioner Family
DX: I10 Essential (primary) hypertension (principal)
CPT/HCPCS: 82043; 82570

== ENCOUNTER 2023-11-13 08:16 | Outpatient (CLI) | payer BC, SELFPAY ==
[2023-11-13 12:24] LABS: Abs Immature Grans 0.02 10^3/uL (0.0-0.06); Absolute Basophil Count 0.07 10^3/uL (0.0-0.2); Absolute Eosinophil Count 0.43 10^3/uL (0.0-0.7); Absolute Lymphocyte Count 1.92 10^3/uL (1.2-3.4); Absolute Neutrophil Count 4.48 10^3/uL (1.2-6.7); Basophils % 0.9; Eosinophils % 5.6; HCT 43.1 % (40.0-50.0); HGB 14.6 g/dL (13.5-17.5); Immature Grans % 0.3; Lymphocytes % 25.2; MCH 29.7 pg (27.0-33.0); MCHC 33.9 % (32.0-36.0); MCV 88 fL (80-95); MPV 9.5 fL (8.0-11.0); Monocytes % 9.2; Neutrophils % 58.8; Platelet Count 356 10^3/uL (130-400); RBC 4.92 10^6/uL (4.36-5.78); RDW 13.2 % (11.8-14.1); RDW-SD 42.5 fL; WBC 7.62 10^3/uL (4.4-10.8)
[2023-11-13 12:36] LABS: Prothrombin Time 9.9 sec (9.1-11.1)
[2023-11-13 12:41] LABS: Anion Gap 11.5 mmol/L (3-11); BUN 15 mg/dL (7-18); CO2 25.5 mmol/L (21.0-32.0); CREATININE 1.2 mg/dL (0.70-1.30); Calcium 9.5 mg/dL (8.5-10.1); Chloride 104 mmol/L (98-107); Estimated GFR 71.42 (mL/min/1.73m2); Glucose 161 mg/dL (74-106); Potassium 4.1 mmol/L (3.5-5.1); Sodium 141 mmol/L (136-145)
[2023-11-13 15:46] LABS: Lab Add On Test DONE
== END 2023-11-13 08:17 | disposition home or self-care (01) ==
LOC: LOS 08:16
PROVIDERS: PCP Nurse Practitioner Family; Referring Provider Nurse Practitioner Family; Visit Provider Nurse Practitioner Family
DX: I10 Essential (primary) hypertension (principal); R58 Hemorrhage, not elsewhere classified; R73.03 Prediabetes
CPT/HCPCS: 36415; 80048; 83036; 85025; 85610

== ENCOUNTER 2024-01-30 08:31 | Day surgery (SDC) | payer BC, SELFPAY ==
--- NOTE | 2024-01-30 07:08 | ANES.PREOP_ITS ---
General Info Date of Service Date Performed: 01/30/24 Height: 5 ft 8 in Weight: 116.12 kg Body Mass Index (BMI): 38.9 Surgical Procedure: Operation Date: 01/30/24 10:20 Proposed Procedure Side Surgeon p Faisal Turner MD Meds Allergies and Home Medications Allergies Allergy/AdvReac Type Severity Reaction Status Date / Time No Known Allergies Allergy Verified 01/30/24 08:44 Home Medication Medication Instructions Recorded psyllium husk 3.4 gram/5.4 gram 1 tbsp PO DAILY 09/22/20 oral powder (Metamucil) allopurinol 300 mg tablet See Rx Instructions .Route 10/17/23 .COMPLEX #90 tabs famotidine 20 mg tablet See Rx Instructions .Route 10/17/23 .COMPLEX #90 tabs rosuvastatin 10 mg tablet (Crestor) 10 mg PO DAILY #90 tabs 10/17/23 lisinopril 10 mg tablet 10 mg PO DAILY #90 tabs 01/16/24 bisacodyl 5 mg tablet,delayed 5 mg PO ONCE #4 tabs 01/17/24 release (Dulcolax (bisacodyl)) polyethylene glycol 3350 17 17 g PO ONCE #238 grams 01/17/24 gram/dose oral powder Current Visit Medications: Current Medications Generic Name Dose Route Start Last Admin Trade Name Freq PRN Reason Stop Dose Admin Ringer's Solution 1,000 mls @ 80 mls/hr 01/30/24 06:00 IV 01/30/24 23:59 INFUSION CHRISTOPHER IV Miscellaneous Supplies 1 each 01/30/24 06:00 Iv Access IV 01/30/24 23:59 DIRECTED CHRISTOPHER Sodium Chloride 0 ml 01/30/24 06:00 Normal Saline Flush 10 Ml Syr IV 01/30/24 23:59 PRN PRN Sodium Chloride 0 ml 01/30/24 06:00 Normal Saline 10 Ml Vial IJ 01/30/24 23:59 DIRECTED PRN Sterile Water 0 ml 01/30/24 06:00 Water,Injection,Sterile 10 Ml Vial IJ 01/30/24 23:59 DIRECTED PRN PFSH Active Problems Active Problems: Problem Status Onset Code Bleeding R58 Leukocytosis D72.829 Hypertension I10 Prediabetes R73.03 Hyperlipidemia E78.5 Colon polyp K63.5 Acquired kyphosis M40.209 Gout 11/24/15 M10.9 Obesity E66.9 Medical History Medical History Rhinosinusitis Rash of penis Biliary colic Gallstones Hyperglycemia 2020, qprm4w-0.2%. 2395-uhlr2p-6.1%, FBS-116 GERD (gastroesophageal reflux disease) Not taking any medication at this time Surgical History Surgical History S/P laparoscopic cholecystectomy Tobacco Smoking/Tobacco Use Status: Never Passive smoking exposure: Yes (growing up with parents smoking) Second hand exposure: Yes Alcohol Alcohol Intake: current Alcohol intake frequency: a few times a month Alcohol type: beer and hard liquor Substance Use Substance use: Never Substance use type: does not use Vital Signs and Lab Results Lab Results Blood Type / Crossmatch: No Data to Display Complete Blood Count: No Data to Display Complete Metabolic Panel: No Data to Display Liver Function Panel: No Data to Display Coagulation Panel: No Data to Display Cardiac Panel: No Data to Display Arterial Blood Gas: No Data to Display Venous Blood Gas: No Data to Display Pancreas Panel: No Data to Display Thyroid Panel: No Data to Display Infectious Disease: No Data to Display Blood Cultures: No Data to Display Toxicology Panel: No Data to Display Imaging and Studies Imaging and Studies Study information below may be from another EMR and interpreted by another provider. Please see original notes in EMR for more complete details. EKG Summary: EKG PATIENT NAME: Mathieu Lemons UNIT #: [id number] ORDERING PROVIDER: Amie Velazquez M.D. PRIMARY CARE PROVIDER: Alexx Wilson DNP DATE/TIME OF SERVICE: 09/02/23 0245 : 1970 PERFORMING LOCATION: ER APPROVED REPORT Exam: Resting ECG Reason for Exam: chest pain Patient Location: E HR:72 bpm ECG Measurements Heart Rate 72 AXIS NC 148 P 32 QRSd 89 QRS 38 QT 377 T6 QTc 414 Conclusion Sinus rhythm...normal P axis, V-rate 60- [address] segment or T wave abnormalities to suggest occluisve MO <Electronically signed by Amie Velazquez M.D. in OV> E-Sign Date: 09/02/23 E-Sign Time: 0301 Anesthesia Assessment and Plan Anesthesia History Personal History: No History of Anesthesia Complications Family History: No Family History of Anesthesia Complications Exercise Tolerance Exercise Tolerance: Metabolic Equivalents>4 Pertinent Negatives Pertinent Negatives: No Symptoms of GERD and No Major Pulmonary Symptoms or Complaints Cardiac & Pulmonary Exam Cardiac Exam: Normal S1/S2 Heart Sounds Pulmonary Exam: Clear Bilateral Breath Sounds Implantable Cardiac Device Does patient have a Pacemaker or an ICD?: No Airway Exam Known Difficult Airway: No Mallampati Class: 3 Mouth Opening: Normal (> 3cm) Thyromental Distance: Greater than 3 cm Neck Range of Motion: Limited ROM (pt slightly kyphotic ) Neck Circumference: Thick Teeth Condition: Normal Dentition ASA Classification ASA Score: ASA 2 Emergency Case?: No NPO Status NPO Status: NPO Clears >2 hours, Solids >8 hours Anesthesia Plan Resuscitation Status: Full Code Anesthesia Technique: General Anesthesia Airway Planned: Natural Airway Monitors Used: Standard Monitors
[2024-01-30 08:35] VITALS: BP 124/81; PULSE 79; RESP 16; TEMP 36.3; O2SAT 95
[2024-01-30] MEDS: Lactated Ringers 1,000 ML 80 ML IV (08:52)
[2024-01-30 09:02] VITALS: BMI 38.9
--- NOTE | 2024-01-30 09:48 | BOWEL_PTH ---
PATIENT: Mathieu Lemons LOC: [facility] U#:[id number] AGE/SX: 53/M ROOM: RE01/30/[address]: Andres Turner : 1970 BED: DIS: 01/30/2024 SPEC #: [id number] RECD: 01/30/24 13:00 STATUS: [facility] #: [id number] KYLAH: 01/30/24 09:[address]: Andres Turner DEPT: Surgical Specimen RECD BY: Annalisa Parikh ENTERED: 01/30/24 13:01 SP TYPE: Bowel OTHR DR: Alexx Wilson DNP Tissues: 1 - BIOPSY BOWEL 2 - BIOPSY BOWEL Procedures: GROSS AND MICRO LEVEL 4 Comments: [id number]
--- NOTE | 2024-01-30 10:03 | COLE_ITS ---
Date of service: 01/30/24 Time of Service: 10:03 Colonoscopy Report Procedure Description: PROCEDURES PERFORMED: 1. Colonoscopy with hot snare polypectomy x1 2. Endoscopic clip placement x 3 3. Cold forceps polypectomy x1 PREOPERATIVE DIAGNOSIS: Surveillance colonoscopy POSTOPERATIVE DIAGNOSIS: Colorectal polyps, grade 1 internal hemorrhoids SURGEON: Santo Turner MD INDICATION for procedure: The patient is a 53-year-old man with no symptoms due for surveillance colonoscopy. Last colonoscopy had a tubular adenoma removed. No family history of colon cancer FINDINGS: The terminal ileum was intubated and normal. No obvious diverticular disease anywhere. In the distal sigmoid colon a small 2-3 mm flat polyp that looked hyperplastic was removed with cold forceps technique. At the rectosigmoid junction(15cm) a sessile 12-15 mm, multi-? lobed polyp was removed with hot snare technique. The polyp was resected as a single specimen however the mucosal defect beneath was quite wide and I felt that it was warranted to re-approximate the edges. I attempted to place endoscopic clips to approximate the mucosal edges 3 separate times however the periphery was friable and each time the clip placement held the edges together but then pulled through them. I finally decided to leave it as is and hopefully this is below the peritoneal reflection. SURVEILLANCE interval/FOLLOW-UP: 3 years for repeat complete colonoscopy. If there is any dysplasia in the polyp then a flexible sigmoidoscopy needs to be performed in the next 6 months. SPECIMENS: yes EBL: Minimal COMPLICATIONS: None QUALITY of prep: Excellent Procedure in detail: The patient gave written consent and was in agreement with the indications, the potential risks as well as the benefits of the procedure. They were taken to the endoscopy suite and laid in the left lateral decubitus po sition. A timeout was performed and anesthesia was administered which was tolerated well. I started the procedure. Digital rectal and visual examination was performed and grossly within normal limits. A well-lubricated flexible colonoscope was then introduced and passed without any notable difficulty all the way to the cecum identified by the ileocecal valve and the appendiceal orifice. The terminal ileum was intubated and looked normal. The scope was then slowly withdrawn with the above-noted findings. The patient tolerated the procedure well and was taken to the PACU in hemodynamically stable condition.
[2024-01-30 10:09] VITALS: BP 101/77; PULSE 87; RESP 16; TEMP 36.2; O2SAT 96
--- NOTE | 2024-01-30 10:13 | W.PM.DSUDISC ---
Date of service: 01/30/24 Time of Service: 10:13 Discharge Plan Disposition Patient Disposition: Home Condition: Good Discharge Details Attending Provider: Andres Turner Primary Care Provider: Alexx Joe Home Meds and New Rx's Prescriptions: No Action Metamucil 3.4 gram/5.4 gram powder 1 tbsp PO DAILY Rx Instructions: mix into at least 8 oz of water or juice before administering bisacodyl [Dulcolax (bisacodyl)] 5 mg tablet,delayed release (DR/EC) 5 mg PO ONCE Qty: 4 0RF Rx Instructions: Take per colonoscopy instructions provided by ordering providers office polyethylene glycol 3350 17 gram/dose powder 17 g PO ONCE Qty: 238 0RF Rx Instructions: Take per colonoscopy instructions provided by ordering providers office famotidine 20 mg tablet See Rx Instructions .ROUTE .COMPLEX Qty: 90 4RF Dose Instruction: TAKE ONE TABLET BY MOUTH EVERY DAY Rx Instructions: TAKE ONE TABLET BY MOUTH EVERY DAY allopurinol 300 mg tablet See Rx Instructions .ROUTE .COMPLEX Qty: 90 4RF Dose Instruction: TAKE ONE TABLET BY MOUTH EVERY DAY Rx Instructions: TAKE ONE TABLET BY MOUTH EVERY DAY rosuvastatin [Crestor] 10 mg tablet 10 mg PO DAILY Qty: 90 4RF lisinopril 10 mg tablet 10 mg PO DAILY Qty: 90 0RF Discharge Instructions Additional Instructions: FINDINGS: A new, large polyp was found and removed today. This get sent to pathology for review. Depending on the findings you may need another short scope in the next 6 months. However most likely you just need to repeat another full colonoscopy in 3 years. You will get called with these results. Stand Alone Forms: Anesthesia Discharge [place]et (DSU) Activity:: Activity as Tolerated Diet:: As Tolerated
[2024-01-30 10:35] VITALS: BP 113/71; RESP 16; TEMP 36; O2SAT 93
--- NOTE | 2024-01-30 10:43 | W.ANESPOSTOP ---
Postoperative Evaluation Date, Time and Location Date Performed: 01/30/24 Time Performed: 10:10 Patient Location: Day Surgery Unit Vital Signs Most Recent Imported Vital Signs: Most Recent Vital Signs Temp Pulse Resp BP Pulse Ox 36 C L 87 16 113/71 93 01/30/24 10:35 01/30/24 10:09 01/30/24 10:35 01/30/24 10:35 01/30/24 10:35 Pain Score Most Recent Pain Score: Most Recent Pain Score Pain Level 0 01/30/24 10:09 Assessment Mental Status: Awake (Alert & Oriented to Patient Baseline) Airway and Respiratory Function: Patent airway with normal (patient baseline) respiratory exam Cardiovascular Function: Hemodynamically Stable Hydration Status: Adequately Hydrated Nausea & Vomiting: No Nausea or Vomiting Pain: Pt. Denies Any Pain Peripheral Nerve Block: Patient did not receive a nerve block
== END 2024-01-30 11:11 | disposition home or self-care (01) ==
LOC: SUR 08:32
PROVIDERS: PCP Nurse Practitioner Family; Visit Provider Student in an Organized Health Care Education/Training Program
PROC: 0DJD8ZZ Inspection of Lower Intestinal Tract, Via Natural or Artificial Opening Endoscopic (ICD-10-PCS; CPT 45378; principal; 2024-01-30 10:15)
DX: Z12.11 Encounter for screening for malignant neoplasm of colon (principal); I10 Essential (primary) hypertension; K63.5 Polyp of colon; K62.1 Rectal polyp; K64.0 First degree hemorrhoids; K63.89 Other specified diseases of intestine
CPT/HCPCS: 45385; 45380; 00123; 88305; J2704

== ENCOUNTER 2024-06-02 18:29 | Outpatient (CLI) | payer BC, SELFPAY ==
--- NOTE | 2024-06-02 18:15 | RT.EKG_ITS ---
APPROVED REPORT Exam: Resting ECG Reason for Exam: chest discomfort Patient Location: O HR:69 bpm ECG Measurements Heart Rate 69 AXIS MA 162 P 37 QRSd 88 QRS 47 QT 373 T 21 QTc 400 Conclusion Sinus rhythm...normal P axis, V-rate 50- 99 Consider left atrial enlargement...wide or notched P waves Otherwise normal ECG
== END 2024-06-02 18:30 | disposition home or self-care (01) ==
LOC: DI.CM 18:30
PROVIDERS: PCP Nurse Practitioner Family; Visit Provider Physician Assistant
DX: R07.89 Other chest pain (principal)
CPT/HCPCS: 93010

== ENCOUNTER 2024-06-03 09:02 | Outpatient (CLI) | payer BC, SELFPAY ==
--- NOTE | 2024-06-03 08:45 | DI.RAD_ITS ---
Exam(s) XR CHEST 2V PA LATERAL EXAM: XR CHEST 2V PA LATERAL CLINICAL HISTORY: cough,r05.9. TECHNIQUE: 2D digital imaging was performed. COMPARISON: No exams were available for comparison FINDINGS: 2 views: Heart size is normal. The mediastinum is not widened. Lungs are clear. No infiltrates nor pleural effusions. IMPRESSION: No acute pulmonary findings. DATA REPOSITORY: RADIATION DOSE DELIVERED:
== END 2024-06-03 09:22 ==
LOC: DI 09:02
PROVIDERS: PCP Nurse Practitioner Family; Visit Provider Physician Assistant
DX: R05.9 Cough, unspecified (principal)
CPT/HCPCS: 71046

== ENCOUNTER 2024-06-09 01:05 | Outpatient (CLI) | payer BC, SELFPAY ==
--- NOTE | 2024-06-09 06:15 | ETT_ITS ---
APPROVED REPORT Exam: Exercise Treadmill Patient Location: Out-Patient Room/Bed: Stress Nurse: Sallie Bowman RN; Caroline Matthews RN Ordering Provider:JUDITH KHALIL, Contact Number: [phone] BMI: 39.37 Baseline Rhythm: Sinus Rhythm Comment: T wave inversion lead III Indications: palpitations Medical History Medical History: HTN, prediabetes, HLD, obesity, GERD Cardiac Medications: allopurinol, lisinopril, rosuvastatin, famotidine Allergies: amoxicillin Cardiac Risk Factors: family hx, HTN, HLD, prediabetes, obesity Previous Cardiac Procedures: none Pretest Chest Pain Characteristics: No chest pain Exercise History: Sedentary Physical Disabilities: none Lung Sounds: Clear to auscultation Heart Sounds: Regular Stress Test Details Test: Exercise stress testing was performed using a Brock protocol. Rest Stress HR Resting HR Supine: 71 bpm Max Heart Rate (APMHR): 164 bpm Resting HR Standin bpm Target HR (85% APMHR): 139 bpm Max HR Achieved: 143 bpm % of APMHR: 87 Recovery HR: 87 bpm HR response to stress: Normal HR response to stress BP Resting BP Supine: 124/78 mmHg Resting BP Standin/76 mmHg Max BP: 216/80 mmHg Recovery BP: 124/74 mmHg BP response to stress: Normal blood pressure response to stress. ECG Resting ECG: Sinus Rhythm Stress ECG: Sinus Tachycardia Lead(s): II, III Stage: 1 to recovery Arrhythmia: None Recovery ECG: Sinus Rhythm Recovery Arrhythmia: occasional PVCs Clinical Reason for Termination: Target HR Achieved Stress Symptoms: none Exercise duration: 7 min36 sec Highest Stage Reached: Stage 3: 3.4 mph at 14% grade. Exercise capacity: 9.53 METs Angina Score: None Norris Treadmill Score: 5.0 Rate Pressure Product: [id number] Stress ECG Conclusion 1. Resting electrocardiogram was normal 2. Patient exercised on the Brock protocol completed workload of 9.53 METS 3. Normal heart rate and blood pressure response to exercise. The patient achieved 87% of predicted heart rate for age 4. There was no electrocardiographic evidence of myocardial ischemia. There were no symptoms suggest jorge of angina 5. There were no significant dysrhythmias Norris Treadmill Score is 5.0 which is Low risk. Stress Test Summary STAGE Time (mins) Speed (mph) Grade (%) HR BP SpO2 SYMPTOMS METS Supine 71 124/78 Standing 73 148/76 1 3 1.7 10 114 188/82 96 4.5 2 6 2.5 12 129 190/80 95 7 3 9 3.4 14 143 10 1 min recovery 121 216/80 3 min recovery 90 168/68 6 min recovery 86 140/72 9 min recovery 87 124/74
== END 2024-06-09 01:25 ==
LOC: DI 01:05
PROVIDERS: PCP Nurse Practitioner Family; Visit Provider Physician Assistant
DX: R00.2 Palpitations (principal)
CPT/HCPCS: 93017

== ENCOUNTER 2024-06-12 07:55 | Outpatient (RCR) | payer BC, SELFPAY ==
--- NOTE | 2024-06-12 08:15 | HOLTER_ITS ---
APPROVED REPORT Conclusion This a 48-hour Holter monitor Predominant rhythm was sinus with an average heart rate of 81. Minimum was 59, maximum 118 There were moderately frequent ventricular ectopic beats There were frequent atrial premature beats. Brief runs of premature atrial contractions occurred. T here was 1 episode consistent with atrial fibrillation, lasting for 4 minutes at a maximum rate of 11 1 There was no high-grade AV block, no pauses greater than 3 seconds Symptoms were reported which could not be reliably correlated to any dysrhythmia
== END 2024-06-26 23:59 | disposition home or self-care (01) ==
LOC: CARDOPNVT 07:55
PROVIDERS: PCP Nurse Practitioner Family; Visit Provider Internal Medicine Cardiovascular Disease
DX: R00.2 Palpitations (principal)
CPT/HCPCS: 93225; 93226

== ENCOUNTER 2024-06-17 19:39 | Outpatient (REF) | payer BC, SELFPAY ==
[2024-06-17 13:37] LABS: ALT 40 U/L (16-63); AST 26 U/L (15-37); Albumin 3.9 g/dL (3.4-5.0); Alkaline Phosphatase 87 U/L (46-116); Anion Gap 7.3 mmol/L (3-11); BUN 15 mg/dL (7-18); Bilirubin, Total 0.47 mg/dL (0.2-1.0); CO2 28.7 mmol/L (21.0-32.0); CREATININE 1.1 mg/dL (0.70-1.30); Calcium 9.3 mg/dL (8.5-10.1); Chloride 104 mmol/L (98-107); Estimated GFR 78.79 (mL/min/1.73m2); Glucose 101 mg/dL (74-106); Potassium 4.4 mmol/L (3.5-5.1); Sodium 140 mmol/L (136-145); Total Protein 6.8 g/dL (6.4-8.2)
== END 2024-06-17 19:40 | disposition home or self-care (01) ==
LOC: LBN 19:39
PROVIDERS: PCP Nurse Practitioner Family; Visit Provider Nurse Practitioner Family
DX: R00.2 Palpitations (principal)
CPT/HCPCS: 80053

== ENCOUNTER 2024-06-20 19:01 | Outpatient (REF) | payer BC, SELFPAY ==
[2024-06-20 21:57] LABS: TSH (W/Ref FT4) 2.09 uIU/mL (0.36-3.74)
== END 2024-06-20 19:02 | disposition home or self-care (01) ==
LOC: LBN 19:01
PROVIDERS: PCP Nurse Practitioner Family; Visit Provider Nurse Practitioner Family
DX: I48.0 Paroxysmal atrial fibrillation (principal); I10 Essential (primary) hypertension; R73.03 Prediabetes; R00.2 Palpitations
CPT/HCPCS: 84443

== ENCOUNTER 2024-06-25 00:42 | Outpatient (CLI) | payer BC, SELFPAY ==
--- NOTE | 2024-06-25 07:30 | DI.US_ITS ---
APPROVED REPORT EXAM: Comprehensive 2D, Doppler, and color-flow Echocardiogram Patient Location: Out-Patient Accounting File Clerk: Michelle Saul RDCS (AE) Indications: Evaluation for HF, Paroxyssmal atrial fibrillation Other Information Study Quality: Adequate Conclusion Normal left ventricular wall thickness and chamber size. Ejection fraction is 57%. Wall motion is n ormal Normal right ventricular size and function Both atria are normal in size There is no structural or hemodynamically significant valvular disease Normal estimated ventricular systolic pressure , 26 mmHg Wall motion Left Ventricle The left ventricle is normal size. The left ventricular systolic function is normal. The left ventric ular ejection fraction is within the normal range. There is normal left ventricular wall thickness. T here is normal LV segmental wall motion. There is no ventricular septal defect visualized. LVEF is 57 %. Right Ventricle Right ventricle is grossly normal in size. Right ventricular systolic function is grossly normal. Atria The left atrium size is normal. The right atrium size is normal. The interatrial septum is intact wit h no evidence for an atrial septal defect. Aortic Valve The aortic valve is normal in structure. Aortic valve is trileaflet. There is no aortic valvular sten osis. No aortic regurgitation is present. Mitral Valve The mitral valve is normal in structure. No evidence of mitral valve stenosis. Trace mitral regurgita tion. Tricuspid Valve The tricuspid valve is normal in structure. There is no tricuspid valve stenosis. Trace tricuspid reg urgitation. The RVSP is 26.5_ mmHg. Pulmonic Valve The pulmonary valve is normal in structure. There is no pulmonic valvular stenosis. There is no pulmo marly valvular regurgitation. Great Vessels The aortic root is normal in size. The ascending aorta is normal in size. Aortic arch is not well vis ualized. IVC is normal in size and collapses >50% with inspiration. Pericardium There is no pericardial effusion. 2D Dimensions IVSD d PLAX 1.00 cm M: 0.6-1.2 Ao Root d 3.29 cm M: 3.1 - 3.7 LVPW d PLAX 1.04 cm M: 0.6 - 1.2 Ao Asc Diam d 3.32 cm M: 2.6 - 3.4 LVID d PLAX 4.33 cm M: 4.2 - 5.8 LVDs 3.03 cm M: 2.5 - 4.0 LV EF Teichholz 57.6 % FS 30.04 % LV EDV (Teich) 84.4 mL LV ESV (Teich) 35.8 mL M-Mode TAPSE 2.35 cm (M/F) >1.7 Auto EF LV EDV A4C 123.1 mL LV EDV A2C 138.7 mL LV EDV BP 133.3 mL LV ESV A4C 53.2 mL LV ESV A2C 60.6 mL LV ESV BP 56.8 mL LVEF(%) A4C 56.8 % LVEF(%) A2C 56.3 % LVEF(%) BP 57.4 % LV SV A4C 69.9 ml LV SV A2C 78.1 ml LV SV BP 76.5 ml LV CO A4C 5.3 L/min LV CO A2C 5.0 L/min LV CO BP 5.1 L/min HR A4C 75.47 BPM HR A2C 64.18 BPM LV EDV Index (BP) LA Volume LA Length A4C 5.7 cm LA Length A2C 5.6 cm LA Area A4C s 19.09 cm2 LA Area A2C s 23.05 cm2 LA Vol A4C A-L 54.39 mL LA Vol A2C A-L 79.85 mL LA Vol Biplane A-L 66.1 mL LA Vol/BSA A4C A-L LA Vol/BSA A2C A-L LA Vol/BSA BP A-L 29.3 mL/m2 LA Vol A4C MOD 51.4 mL LA Vol A2C MOD 75.2 mL LA Vol BP MOD 62.4 mL RA Volume RA Area A4C 13.1 cm2 RA ESV A4C (A-L) 30.6mL RA Vol/BSA A4C A-L RA Length A4C 4.8 cm RA ESV A4C (MOD) 28.6mL LV Diastology MV E' medial 0.107 (>0.07 m/s) MV E Vmax 0.70 (0.4-1.3 m/s) MV E/E' MED 6.53 (<14) MV A Vmax 0.85 (0.4-1.3 m/s) MV E' lateral 0.128 (>0.1 m/s) E/A Ratio 0.8 MV E/E' LAT 5.48 (<14) MV E' Average 0.118 m/s MV E/E'(average) 5.96 Aortic Valve AoV Vmax 1.33 m/s LVOT Vmax 1.17 m/s AoV Peak Grad 7.0 mmHg LVOT Peak Grad 5.5 mmHg AoV Area (Vmax) 2.75 cm2 LVOT VTI 0.245 m AoV VTI 0.241 m LVOT Mean Grad 3.0 mmHg AoV Mean Sanchez. 1.02 m/s LVOT SV 76.44 mL AoV Mean Grad 4.7 mmHg LVOT Diam s 1.95 cm AoV Area (VTI) 3.17 cm2 AV Regurg Peak Gr. 7.04 mmHg Velocity Ratio 0.88 Mitral Valve MV DT 321 (160-240 msec) MV Vmax TIPS 0.75 m/s MV Mean Grad 1.2 (<2mmHg) MV VTI 0.204 m Pulmonary Valve PV Vmax 1.50 (0.5-1.5 m/s) RVOT Vmax 1.06 m/s PV Peak Grad 9.1 mmHg RVOT Peak Gr. 4.5 mmHg PV Mean Sanchez 0.97 m/s RVOT VTI 0.262 m PV Mean Grad 4.4 mmHg RVOT Mean Gr. 2.4 mmHg Tricuspid Valve RA Pressure 3.00 mmHg TR Vmax 2.42 m/s TV S' 0.16 m/s TR Peak Grad 23.4 mmHg RVSP (TR) 26.5 mmHg
== END 2024-06-25 01:02 ==
LOC: DI 00:43
PROVIDERS: PCP Nurse Practitioner Family; Visit Provider Nurse Practitioner Family
DX: I48.0 Paroxysmal atrial fibrillation (principal)
CPT/HCPCS: 93306